=== PATIENT | female | born 1965 | race Caucasian/White ===

== ENCOUNTER 2019-05-18 01:18 | Inpatient (IN) | payer OTHER ==
[~2019-05-18] VITALS: Ht 157.5 cm; Wt 71.7 kg
[2019-05-18] MEDS ORDERED: LEVETIRACETAM 1000 MG (PMX) 100 ML IVPB STA (01:23)
[2019-05-18] MEDS ORDERED: SOD CHLORIDE 0.9% 1,000 ML IV STA (01:23)
--- NOTE | 2019-05-18 03:44 | ERD ---
ER Documentation Chief Complaint Chief Complaint R81. FROM SNF. FOCAL SEIZURE FACE AND LEFT ARM. HPI This is a 53-year-old female with a past medical history of hypertension, traumatic subarachnoid hemorrhage, anoxic brain injury in a persistent vegetative state, chronic respiratory failure status post tracheostomy, dysphagia status post gastrostomy who is now presenting for a focal seizure. The patient reportedly had 20 to 25 minutes of left arm and left-sided facial twitching. The patient was reportedly ordered 1 mg of Ativan through the G-tube at her [facility] facility for this event, but it proved ineffective. The nursing facility physician subsequently requested that the patient be transferred for further assessment in the emergency department. The patient was given Versed in route to the emergency department with resolution of her shaking. The patient now appears to be back at her baseline. Based on her medical records, the patient does not have a history of seizures. History and physical is limited secondary to clinical condition. ROS Unable to obtain secondary to clinical condition Medications Home Meds Reported Medications Acetaminophen* (Acetaminophen*) 325 Mg Tablet, 650 MG PO Q4H PRN for PAIN AND OR ELEVATED TEMP, #30 TAB 05/18/19 Cranberry Ext/C/L. Sporogenes (Cranberry Tablet) 1 Each Tablet, 1 EACH PO DAILY, TAB 05/18/19 Docusate Sodium* (Docusate Sodium*) 100 Mg Capsule, 100 MG PO QHS, #30 CAP 05/18/19 Chlorhexidine Gluconate* (Chlorhexidine Gluconate*) 118 Ml Liquid, 15 ML TOP Q12H, ML 05/18/19 Amlodipine Besylate* (Amlodipine Besylate*) 10 Mg Tablet, 10 MG PO DAILY, #30 TAB 05/18/19 Albuterol Sulfate* (Proair HFA*) 8.5 Gm Hfa.aer.ad, 2 PUFF INH Q6 for WHEEZING, #1 INHALER 05/18/19 Allergies Allergies: Coded Allergies: No Known Allergy (Unverified , 05/18/19) PMhx/Soc History of Surgery: Yes (Tracheostomy, gastrostomy) Anesthesia Reaction: No Hx Neurological Disorder: Yes (Traumatic subarachnoid hemorrhage, anoxic brain injury, persistent vegetative state) Hx Respiratory Disorders: Yes (Chronic respiratory failure status post tracheostomy) Hx Cardiac Disorders: Yes (Hypertension) Hx Psychiatric Problems: No Hx Miscellaneous Medical Probl: Yes (Dysphasia status post gastrostomy, ambulatory difficulty) Hx Alcohol Use: No Hx Substance Use: No Hx Tobacco Use: No FmHx Unable to obtain secondary to clinical condition Physical Exam Vitals Vital Signs Date Temp Pulse Resp B/P (MAP) Pulse Ox O2 O2 Flow FiO2 Time Delivery Rate 05/18/19 100 10.0 40 05:15 05/18/19 85 18 100 Aerosol 10.0 40 05:15 T Tube 05/18/19 90 28 134/89 96 T Tube 15.0 03:00 (104) 05/18/19 100 10.0 40 02:50 05/18/19 108 20 100 T Tube 15.0 01:31 05/18/19 100 15.0 01:31 05/18/19 100.1 121 20 01:19 Physical Exam Const: No acute distress Head: Atraumatic Eyes: Normal Conjunctiva ENT: Normal External Ears, Nose and Mouth. Neck: Full range of motion. No meningismus. Resp: Clear to auscultation bilaterally Cardio: Regular rhythm, tachycardia, no murmurs Abd: Soft, non tender, non distended. Normal bowel sounds Skin: No petechiae or rashes Back: No midline or flank tenderness Ext: No cyanosis, or edema. Atrophic with contracturing Neur: Unresponsive, no spontaneous movement of extremities Result Diagram: 05/18/19 0140 05/18/19 0140 Results 24 hrs Laboratory Tests Test 05/18/19 01:40 05/18/19 01:47 White Blood Count 9.6 10^3/ul Red Blood Count 4.19 10^6/ul Hemoglobin 12.3 g/dl Hematocrit 37.6 % Mean Corpuscular Volume 89.7 fl Mean Corpuscular Hemoglobin 29.4 pg Mean Corpuscular Hemoglobin Concent 32.7 g/dl Red Cell Distribution Width 12.8 % Platelet Count 244 10^3/UL Mean Platelet Volume 11.5 fl Immature Granulocytes % 1.000 % Neutrophils % 70.0 % Lymphocytes % 18.8 % Monocytes % 5.7 % Eosinophils % 4.1 % Basophils % 0.4 % Nucleated Red Blood Cells % 0.0 /100WBC Immature Granulocytes # 0.100 10^3/ul Neutrophils # 6.7 10^3/ul Lymphocytes # 1.8 10^3/ul Monocytes # 0.6 10^3/ul Eosinophils # 0.4 10^3/ul Basophils # 0.0 10^3/ul Nucleated Red Blood Cells # 0.0 10^3/ul Prothrombin Time 12.9 Sec Prothrombin Time Ratio 1.0 INR International Normalized Ratio 0.96 Activated Partial Thromboplast Time 29.2 Sec Sodium Level 149 mmol/L Potassium Level 3.2 mmol/L Chloride Level 105 mmol/L Carbon Dioxide Level 31 mmol/L Anion Gap 13 Blood Urea Nitrogen 16 mg/dl Creatinine 0.49 mg/dl Est Glomerular Filtrat Rate mL/min > 60 mL/min Glucose Level 165 mg/dl Calcium Level 8.6 mg/dl Total Bilirubin 0.2 mg/dl Direct Bilirubin 0.00 mg/dl Indirect Bilirubin 0.2 mg/dl Aspartate Amino Transf (AST/SGOT) 23 IU/L Alanine Aminotransferase (ALT/SGPT) 24 IU/L Alkaline Phosphatase 99 IU/L Total Protein 8.2 g/dl Albumin 4.3 g/dl Globulin 3.90 g/dl Albumin/Globulin Ratio 1.10 Bedside Glucose 167 mg/dL Current Medications Medications Dose Sig/Lily Start Time Status Last (Trade) Ordered Route PRN Stop Time Admin Dose Reason Admin Sodium 1,000 ml @ Q1H STAT 05/18/19 DC 05/18/19 Chloride 1,000 mls/hr IV 01:23 05/18/19 01:39 02:22 100 ml @ ONCE STAT 05/18/19 DC 05/18/19 Levetiracetam 400 mls/hr IVPB 01:23 05/18/19 02:11 01:37 Ondansetron 4 mg ER BRIDGE 05/18/19 HCl (Zofran PRN IV 04:30 05/19/19 Inj) NAUSEA/VOMITI 04:29 NG 650 mg ER BRIDGE 05/18/19 Acetaminophen PRN PO 04:30 05/19/19 (Tylenol .MILD PAIN 04:29 Tab) 1-3 OR TEMP Procedures/MDM MDM The patient's presentation warrants further investigation. Previous medical records, if available, were reviewed. LABS The patient's laboratory testing was obtained and reviewed. No emergent treatment was required unless described below. CBC: No E/o systemic infection or severe anemia or thrombocytopenia Chemistry: Mild hypokalemia, not emergent, unlikely to be the etiology of her symptoms today. No E/o severe acidosis or alkalosis or renal failure or liver disease or diabetic ketoacidosis PT/INR: No E/o significant coagulopathy Urine: Pending EKG EKG read by me: Rate/Rhythm: Sinus tachycardia at 112 bpm Intervals: Normal [place]: Normal Impression: Nonspecific repolarization changes without evidence of acute ischemia. Sinus tachycardia. IMAGING Imaging and Radiology interpretation reviewed. CXR FINDINGS: Unremarkable tracheostomy. Hypoventilatory chest. Heart borderline enlarged. No evidence of pulmonary vascular congestion acute lung consolidation pleural effusions and pneumothorax. Left-sided ventriculostomy. IMPRESSION: Hypoventilatory chest without congestive heart failure or pneumonia. Electronically viewed and signed by Physician Yaneli on 05/18/2019 03:48 CT head FINDINGS: There is considerable motion artifact despite repeating the scan limiting the evaluation. There has been a prior right frontal craniotomy. There appears to be an aneurysm clip within the anterior parasagittal region. There is a left transfrontal ventriculoperitoneal shunt with the catheter crossing the septum pellucidum with the tip in the right frontal horn of the lateral ventricle. There is extensive bifrontal encephalomalacia. There is mild prominence of the sulci and cisternal spaces consistent with diffuse volume loss. There is prominence of the lateral ventricles. There is no significant midline shift. There is no evidence for acute intra or extra-axial blood. There is polypoidal mucosal thickening within the partially visualized inferior right maxillary sinus. The mastoid air cells are without significant soft tissue. IMPRESSION: 1. Extensive motion artifact markedly limiting the evaluation. 2. Status post right frontal craniotomy with aneurysm clip within the anterior parasagittal region. 3. Extensive bifrontal encephalomalacia. 4. Left transfrontal ventriculoperitoneal shunt with the tip in the frontal horn of the right lateral ventricle. 5. Diffuse prominence of the ventricular system. Prior studies are not available to assess interval change. 6. Mild diffuse volume loss. 7. Polypoidal mucosal thickening partially visualized inferior right maxillary sinus. Electronically viewed and signed by Jevon Mason MD, MD on 05/18/2019 04:55 TREATMENT/DISPOSITION The patient presents after a focal seizure, which is reportedly new onset. Upon reviewing the patient's medical record, the patient does not appear to have a diagnosis of a seizure disorder and does not appear to be on any seizure medications. She does have a history of traumatic brain injury with previous intracranial hemorrhages, hydrocephalus requiring TABLET MACHINE OPERATOR shunt, so I would not be surprised if the patient does not fact have a seizure disorder. That said, I do not have any previous visits here to suggest this, and I do feel the patient would benefit from further assessment in the hospital. The patient does appear to have some prominence of her ventricular system. The patient may require evaluation from neurosurgery regarding the TABLET MACHINE OPERATOR shunt. This decision will be deferred to the admitting physician. The patient did have an elevated temperature in the emergency department, but she is technically not febrile. The patient does not meet criteria for a systemic inflammatory response syndrome. I do not believe the patient is septic and I do not feel the patient requires a full septic work-up. That said, an infectious etiology could be the inciting event that led to a decrease seizure threshold. I do not see evidence of obvious pneumonia. That said, a viral syndrome is certainly a possibility. I am also awaiting a urinalysis. I do not immediately treat the patient with antibiotics, but she may require antibiotics if her urinalysis comes back positive. The patient has no signs of emergent or symptomatic anemia. The patient does not have any emergent electrolyte or metabolic emergencies. I have decrease suspicion for a thyroid disorder. The patient is not toxic appearing. I have decreased suspicion for an infectious etiology of symptoms. The patient was treated with IV fluids and a dose of Keppra in the emergency department. ADMISSION At this time, I feel that the patient requires admission for further evaluation and management. The patient will be admitted to Dr. Metcalf in accordance with the patient's insurance. The patient was accepted by Dr. Metcalf at 0500AM to telemetry. Disclaimer: Inadvertent spelling and grammatical errors are likely due to EHR/dictation software use and do not reflect on the overall quality of patient care. Note that the electronic time recorded on this note does not necessarily reflect the actual time of the patient encounter. Departure Diagnosis: Primary Impression: Seizure Additional Impression: Hypokalemia Condition: Serious JEFF GARCIA MD May 18, 2019 03:43
[2019-05-18] MEDS ORDERED: ACETAMINOPHEN 325 MG TAB PO PRN (04:30)
[2019-05-18] MEDS ORDERED: ONDANSETRON 4 MG INJ IV PRN (04:30)
[2019-05-18] MEDS ORDERED: CHLO118L3 TOP (04:45)
[2019-05-18] MEDS ORDERED: DOCU-159 PO (04:45)
[2019-05-18] MEDS ORDERED: AMLO-147 PO (04:45)
[2019-05-18] MEDS ORDERED: ALBU8.5H8 INH (04:45)
[2019-05-18] MEDS ORDERED: CRAN1TAB6 PO (04:45)
[2019-05-18] MEDS ORDERED: ACET325T45 PO (04:45)
--- NOTE | 2019-05-18 12:56 | HP ---
Date/Time of Note Date/Time of Note DATE: 05/18/19 TIME: 12:31 Assessment/Plan VTE Prophylaxis SCD contraindicated: other Pharmacological prophylaxis: other Pharm contraindication: other Lines/Catheters IV Catheter Type (from Nrsg): Peripheral IV Central line still needed: Yes Assessment/Plan Assessment/Plan - Seizure activity - admit to unit - Seizure precautions - is following in neurology consultation.- notified - Continue Keppra and Ativan as needed. - Hypokalemia- replace; FU am BMP -Chronic respiratory failure with tracheostomy currently on cool aerosol mist. - Dr. Blake is notified following in pulmonology consultation. - Hypertension -Dysphagia with G-tube -Hypertension, continue Norvasc. -History of subarachnoid hemorrhage. - Traumatic subarachnoid hemorrhage - anoxic brain injury - persistent vegetative state - Chronic respiratory failure status post tracheostomy - Pulmonary consult - Dysphasia status post gastrostomy - aspiration precautions - Bed Ridden Further recommendations based on clinical course. Plan of care discussed with Dr. Metcalf. Result Diagram: 05/18/19 0140 05/18/19 0140 Results 24hrs Laboratory Tests Test 05/18/19 01:40 05/18/19 01:47 White Blood Count 9.6 Red Blood Count 4.19 L Hemoglobin 12.3 Hematocrit 37.6 Mean Corpuscular Volume 89.7 Mean Corpuscular Hemoglobin 29.4 Mean Corpuscular Hemoglobin Concent 32.7 Red Cell Distribution Width 12.8 Platelet Count 244 Mean Platelet Volume 11.5 H Immature Granulocytes % 1.000 H Neutrophils % 70.0 Lymphocytes % 18.8 Monocytes % 5.7 Eosinophils % 4.1 Basophils % 0.4 Nucleated Red Blood Cells % 0.0 Immature Granulocytes # 0.100 H Neutrophils # 6.7 Lymphocytes # 1.8 Monocytes # 0.6 Eosinophils # 0.4 Basophils # 0.0 Nucleated Red Blood Cells # 0.0 Prothrombin Time 12.9 Prothrombin Time Ratio 1.0 INR International Normalized Ratio 0.96 Activated Partial Thromboplast Time 29.2 Sodium Level 149 H Potassium Level 3.2 L Chloride Level 105 Carbon Dioxide Level 31 Anion Gap 13 Blood Urea Nitrogen 16 Creatinine 0.49 Est Glomerular Filtrat Rate mL/min > 60 Glucose Level 165 Calcium Level 8.6 Total Bilirubin 0.2 Direct Bilirubin 0.00 Indirect Bilirubin 0.2 Aspartate Amino Transf (AST/SGOT) 23 Alanine Aminotransferase (ALT/SGPT) 24 Alkaline Phosphatase 99 Total Protein 8.2 H Albumin 4.3 Globulin 3.90 H Albumin/Globulin Ratio 1.10 Bedside Glucose 167 HPI/ROS Admit Date/Time Admit Date/Time Hx of Present Illness HPI This is a 53-year-old female, a SNF resident with a past medical history of hypertension, traumatic subarachnoid hemorrhage, anoxic brain injury in a persistent vegetative state, chronic respiratory failure status post tracheostomy, dysphagia status post gastrostomy . Patient is admitted 2/ to a focal seizure. Based on her medical records, the patient does not have a history of seizures.History and physical is limited secondary to clinical condition. ROS Unable to obtain secondary to clinical condition Medications Home Meds Reported Medications Acetaminophen* (Acetaminophen*) 325 Mg Tablet, 650 MG PO Q4H PRN for PAIN AND OR ELEVATED TEMP, #30 TAB 05/18/19 Cranberry Ext/C/L. Sporogenes (Cranberry Tablet) 1 Each Tablet, 1 EACH PO DAILY, TAB 05/18/19 Docusate Sodium* (Docusate Sodium*) 100 Mg Capsule, 100 MG PO QHS, #30 CAP 05/18/19 Chlorhexidine Gluconate* (Chlorhexidine Gluconate*) 118 Ml Liquid, 15 ML TOP Q12H, ML 05/18/19 Amlodipine Besylate* (Amlodipine Besylate*) 10 Mg Tablet, 10 MG PO DAILY, #30 TAB 05/18/19 Albuterol Sulfate* (Proair HFA*) 8.5 Gm Hfa.aer.ad, 2 PUFF INH Q6 for WHEEZING, #1 INHALER 05/18/19 Allergies Allergies: Coded Allergies: No Known Allergy (Unverified , 05/18/19) PMhx/Soc History of Surgery: Yes (Tracheostomy, gastrostomy) Anesthesia Reaction: No Hx Neurological Disorder: Yes (Traumatic subarachnoid hemorrhage, anoxic brain injury, persistent vegetative state) Hx Respiratory Disorders: Yes (Chronic respiratory failure status post tracheos shahid) Hx Cardiac Disorders: Yes (Hypertension) Hx Psychiatric Problems: No Hx Miscellaneous Medical Probl: Yes (Dysphasia status post gastrostomy, ambulatory difficulty) Hx Alcohol Use: No Hx Substance Use: No Hx Tobacco Use: No FmHx Unable to obtain secondary to clinical condition ROS Subjective hx not possible: pt non-verbal PMH/Family/Social Past Medical History Medications Current Medications Ondansetron HCl (Zofran Inj) 4 mg ER BRIDGE PRN IV NAUSEA/VOMITING; Start 05/18/19 at 04:30; Stop 05/19/19 at 04:29 Acetaminophen (Tylenol Tab) 650 mg ER BRIDGE PRN PO .MILD PAIN 1-3 OR TEMP; Start 05/18/19 at 04:30; Stop 05/19/19 at 04:29 Coded Allergies: No Known Allergy (Unverified , 05/18/19) Exam/Review of Systems Vital Signs Vitals Vital Signs Date Temp Pulse Resp B/P (MAP) Pulse Ox O2 O2 Flow FiO2 Time Delivery Rate 05/18/19 76 22 117/86 100 Trach 11:08 (96) Collar 05/18/19 12.0 06:56 05/18/19 40 05:15 05/18/19 100.1 01:19 Exam Constitutional: alert, non-verbal Psych: nl mood/affect Eyes: nl lids, nl sclera ENMT: nl external ears & nose Neck: other (trach intact) Respiratory: diminished breath sounds Cardiovascular: nl pulses, other (s1s2) Gastrointestinal: soft, other (GT intact) Musculoskeletal: muscle weakness, range of motion Neurological: confused Lymph: nontender KHALIDA BURCIAGA May 18, 2019 12:41
[2019-05-18] MEDS ORDERED: POTASSIUM CHLORIDE 100 ML IVPB ONE (13:00)
--- NOTE | 2019-05-18 19:37 | CONSI ---
Assessment/Plan Assessment/Plan Assessment/Plan (Recall) 53 F c/ reported Hx of aneurysm rupture s/p clipping..., who presents following a suspected seizure..her reported first of life. CXR suggests congestive failure vs. pna; acute systemic illness would certainly lower her seizure threshold.. Head CT is notable for diffuse injury...without obvious acute pathology. P: Baseline EEG when able Add Keppra for seizure ppx, given extensive encephalomalacia noted on head CT Ativan iv prn prolonged seizure (> 5min) Add UA, Mg, Phos Other management per primary Will follow clinically Consultation Date/Type/Reason Admit Date/Time Type of Consult Neurology Reason for Consultation seizure Requesting Provider: KHALIDA BURCIAGA Date/Time of Note DATE: 05/18/19 TIME: 19:37 Hx of Present Illness 53 F who presents for evaluation of focal seizures. She is unable to contribute a Hx 2/2 chronic ventilatory dependence. She is without neurologic complaints today. She is NOT is PVS...but alert, and able to follow simple commands. It is elsewhere noted: This is a 53-year-old female with a past medical history of hypertension, traumatic subarachnoid hemorrhage, anoxic brain injury in a persistent vegetative state, chronic respiratory failure status post tracheostomy, dysphagia status post gastrostomy who is now presenting for a focal seizure. The patient reportedly had 20 to 25 minutes of left arm and left-sided facial twitching. The patient was reportedly ordered 1 mg of Ativan through the G-tube at her [facility] facility for this event, but it proved ineffective. The nursing facility physician subsequently requested that the patient be transferred for further assessment in the emergency department. The patient was given Versed in route to the emergency department with resolution of her sh aking. The patient now appears to be back at her baseline. Based on her medical records, the patient does not have a history of seizures. History and physical is limited secondary to clinical condition. limited by trach Objective Exam Vitals Vital Signs Date Temp Pulse Resp B/P (MAP) Pulse Ox O2 O2 Flow FiO2 Time Delivery Rate 05/18/19 100 10.0 40 17:38 05/18/19 76 21 113/89 Trach 15:00 (97) Collar 05/18/19 100.1 01:19 Exam PE: Gen Appearance: No Apparent Distress HEENT: Trach Cardiovascular: Regular rate Abdomen: Soft Extremities: Dry NE: The patient was alert, able to fix and follow...and nod appropriately. She could follow simple commands. Cranial nerve examination was limited by mental status. Pupils were equal and reactive to light. There was no afferent pupillary defect. Funduscopic examination was limited. Face was grossly symmetric, w/ present corneal and cough reflexes. Tone was increased, most in the right hand. Muscle bulk was reduced. I did not see fasciculations. The patient moved her limbs spontaneously, with appreciable right sided weakness. Coordination and gait testing was limited by mental status. Arm and leg reflexes were brisk on the right. Medley's sign was absent. Plantar responses were flexor. Results Result Diagram: 05/18/19 0140 05/18/19 0140 Results 24hrs Laboratory Tests Test 05/18/19 01:40 05/18/19 01:47 White Blood Count 9.6 Red Blood Count 4.19 L Hemoglobin 12.3 Hematocrit 37.6 Mean Corpuscular Volume 89.7 Mean Corpuscular Hemoglobin 29.4 Mean Corpuscular Hemoglobin Concent 32.7 Red Cell Distribution Width 12.8 Platelet Count 244 Mean Platelet Volume 11.5 H Immature Granulocytes % 1.000 H Neutrophils % 70.0 Lymphocytes % 18.8 Monocytes % 5.7 Eosinophils % 4.1 Basophils % 0.4 Nucleated Red Blood Cells % 0.0 Immature Granulocytes # 0.100 H Neutrophils # 6.7 Lymphocytes # 1.8 Monocytes # 0.6 Eosinophils # 0.4 Basophils # 0.0 Nucleated Red Blood Cells # 0.0 Prothrombin Time 12.9 Prothrombin Time Ratio 1.0 INR International Normalized Ratio 0.96 Activated Partial Thromboplast Time 29.2 Sodium Level 149 H Potassium Level 3.2 L Chloride Level 105 Carbon Dioxide Level 31 Anion Gap 13 Blood Urea Nitrogen 16 Creatinine 0.49 Est Glomerular Filtrat Rate mL/min > 60 Glucose Level 165 Calcium Level 8.6 Total Bilirubin 0.2 Direct Bilirubin 0.00 Indirect Bilirubin 0.2 Aspartate Amino Transf (AST/SGOT) 23 Alanine Aminotransferase (ALT/SGPT) 24 Alkaline Phosphatase 99 Total Protein 8.2 H Albumin 4.3 Globulin 3.90 H Albumin/Globulin Ratio 1.10 Bedside Glucose 167 Past Medical History reviewed Home Meds Reported Medications Acetaminophen* (Acetaminophen*) 325 Mg Tablet, 650 MG PO Q4H PRN for PAIN AND OR ELEVATED TEMP, #30 TAB 05/18/19 Cranberry Ext/C/L. Sporogenes (Cranberry Tablet) 1 Each Tablet, 1 EACH PO DAILY, TAB 05/18/19 Docusate Sodium* (Docusate Sodium*) 100 Mg Capsule, 100 MG PO QHS, #30 CAP 05/18/19 Chlorhexidine Gluconate* (Chlorhexidine Gluconate*) 118 Ml Liquid, 15 ML TOP Q12H, ML 05/18/19 Amlodipine Besylate* (Amlodipine Besylate*) 10 Mg Tablet, 10 MG PO DAILY, #30 TAB 05/18/19 Albuterol Sulfate* (Proair HFA*) 8.5 Gm Hfa.aer.ad, 2 PUFF INH Q6 for WHEEZING, #1 INHALER 05/18/19 Medications Current Medications Ondansetron HCl (Zofran Inj) 4 mg ER BRIDGE PRN IV NAUSEA/VOMITING; Start 05/18/19 at 04:30; Stop 05/19/19 at 04:29 Acetaminophen (Tylenol Tab) 650 mg ER BRIDGE PRN PO .MILD PAIN 1-3 OR TEMP; Start 05/18/19 at 04:30; Stop 05/19/19 at 04:29 Allergies: Coded Allergies: No Known Allergy (Unverified , 05/18/19) Past Surgical History reviewed Social History Alcohol Use: none Drug Use: none LAINA VIDAL May 18, 2019 19:37
[2019-05-18 20:00] VITALS: BP 109/65; PULSE 83; RESP 19
[2019-05-18 22:25] VITALS: Ht 157.5 cm; Wt 71.7 kg
[2019-05-19] VITALS: BP 121/78; PULSE 75; RESP 20
[2019-05-19 04:00] VITALS: BP 123/75; PULSE 67; RESP 18
[2019-05-19 07:30] VITALS: BP 121/72; PULSE 72; RESP 20
--- NOTE | 2019-05-19 08:06 | CONS ---
Assessment/Plan Assessment/Plan Assessment/Plan (Recall) 53 F c/ reported Hx of aneurysm rupture s/p clipping..., who presents following a suspected seizure..her reported first of life. CXR suggests congestive failure vs. pna; acute systemic illness would certainly lower her seizure threshold.. Head CT is notable for diffuse injury...without obvious acute pathology. P: Baseline EEG when able Add Keppra for seizure ppx, given extensive encephalomalacia noted on head CT Ativan iv prn prolonged seizure (> 5min) Add UA, Mg, Phos Other management per primary Will follow clinically Consultation Date/Type/Reason Admit Date/Time May 18, 2019 at 04:25 Type of Consult Neurology Reason for Consultation seizure Requesting Provider: KHALIDA BURCIAGA Date/Time of Note DATE: 05/19/19 TIME: 08:06 24 HR Interval Summary Free Text/Dictation Continues acute care Exam/Review of Systems Exam Vitals Vital Signs Date Temp Pulse Resp B/P (MAP) Pulse Ox O2 O2 Flow FiO2 Time Delivery Rate 05/19/19 98.5 72 20 121/72 99 Trach 07:30 (88) Collar 05/19/19 10.0 40 03:47 Intake and Output 05/18/19 05/18/19 05/19/19 1414:59 22:59 06:59 IntakeIntake Total 880 ml BalanceBalance 880 ml Results Result Diagram: 05/18/19 0140 05/18/19 0140 Medications Medication Current Medications Lorazepam (Ativan) 1 mg Q1H PRN IV SEIZURE; Start 05/18/19 at 22:00 LAINA VIDAL May 19, 2019 08:06
[2019-05-19] MEDS: LORAZEPAM 2 MG INJ IV PRN ×2 (09:53→13:35)
--- NOTE | 2019-05-19 10:15 | PN ---
Date/Time of Note Date/Time of Note DATE: 05/19/19 TIME: 10:14 Assessment/Plan VTE Prophylaxis Risk score (from Ns)>0 risk: 6 SCD applied (from [facility] [place]): Yes SCD contraindicated: other Pharmacological prophylaxis: other Pharm contraindication: other Lines/Catheters IV C[facility]ter Type (from [facility]): Peripheral IV Assessment/Plan Assessment/Plan Hypokalemia - replace K; am BMP Seizure - Seizure precautions - Pulmonary consult Hypokalemia -Tracheostomy, gastrostomy - Traumatic subarachnoid hemorrhage - anoxic brain injury persistent vegetative state - Chronic respiratory failure status post tracheostomy - Hypertension Dysphasia status post gastrostomy Bed Ridden Result Diagram: 05/19/19 0659 05/19/19 0659 Results 24hrs Laboratory Tests Test 05/19/19 06:58 05/19/19 06:59 Phosphorus Level 3.7 Magnesium Level 2.1 White Blood Count 6.4 # Red Blood Count 3.78 L Hemoglobin 11.2 L Hematocrit 33.3 L Mean Corpuscular Volume 88.1 Mean Corpuscular Hemoglobin 29.6 Mean Corpuscular Hemoglobin Concent 33.6 Red Cell Distribution Width 12.9 Platelet Count 222 Mean Platelet Volume 12.2 H Immature Granulocytes % 0.200 Neutrophils % 56.5 Lymphocytes % 28.4 Monocytes % 9.6 Eosinophils % 4.8 Basophils % 0.5 Nucleated Red Blood Cells % 0.0 Immature Granulocytes # 0.010 Neutrophils # 3.6 Lymphocytes # 1.8 Monocytes # 0.6 Eosinophils # 0.3 Basophils # 0.0 Nucleated Red Blood Cells # 0.0 Sodium Level 145 H Potassium Level 3.2 L Chloride Level 106 Carbon Dioxide Level 32 H Anion Gap 7 Blood Urea Nitrogen 16 Creatinine 0.42 L Est Glomerular Filtrat Rate mL/min > 60 Glucose Level 102 # Calcium Level 8.9 Subjective 24 Hr Interval Summary Subjective hx not possible: pt non-verbal Constitutional: requiring O2 Exam/Review of Systems Exam Vitals Vital Signs Date Temp Pulse Resp B/P (MAP) Pulse Ox O2 O2 Flow FiO2 Time Delivery Rate 05/19/19 98.5 72 20 121/72 99 Trach 07:30 (88) Collar 05/19/19 10.0 40 03:47 Intake and Output 05/18/19 05/18/19 05/19/19 1414:59 22:59 06:59 IntakeIntake Total 880 ml BalanceBalance 880 ml Constitutional: alert, well developed, non-verbal Psych: nl mood/affect Head: normocephalic Eyes: nl lids ENMT: nl external ears & nose Neck: other (Trach intact) Respiratory: clear to auscultation Cardiovascular: nl pulses, other (s1s2) Gastrointestinal: soft, other (gt intact) Musculoskeletal: muscle weakness Extremities: normal pulses Neurological: other (awake) Results Results 24hrs Laboratory Tests Test 05/19/19 06:58 05/19/19 06:59 Phosphorus Level 3.7 Magnesium Level 2.1 White Blood Count 6.4 # Red Blood Count 3.78 L Hemoglobin 11.2 L Hematocrit 33.3 L Mean Corpuscular Volume 88.1 Mean Corpuscular Hemoglobin 29.6 Mean Corpuscular Hemoglobin Concent 33.6 Red Cell Distribution Width 12.9 Platelet Count 222 Mean Platelet Volume 12.2 H Immature Granulocytes % 0.200 Neutrophils % 56.5 Lymphocytes % 28.4 Monocytes % 9.6 Eosinophils % 4.8 Basophils % 0.5 Nucleated Red Blood Cells % 0.0 Immature Granulocytes # 0.010 Neutrophils # 3.6 Lymphocytes # 1.8 Monocytes # 0.6 Eosinophils # 0.3 Basophils # 0.0 Nucleated Red Blood Cells # 0.0 Sodium Level 145 H Potassium Level 3.2 L Chloride Level 106 Carbon Dioxide Level 32 H Anion Gap 7 Blood Urea Nitrogen 16 Creatinine 0.42 L Est Glomerular Filtrat Rate mL/min > 60 Glucose Level 102 # Calcium Level 8.9 Medications Medication Current Medications Lorazepam (Ativan) 1 mg Q1H PRN IV SEIZURE Last administered on 05/19/19at 09:53; Admin Dose 1 MG; Start 05/18/19 at 22:00 KHALIDA BURCIAGA May 19, 2019 10:15
[2019-05-19 10:56] VITALS: BP 128/79; PULSE 68; RESP 20
--- NOTE | 2019-05-19 12:34 | CONS ---
DATE OF ADMISSION: 05/18/2019 DATE OF CONSULTATION: 05/19/2019 REASON FOR CONSULTATION: Chronic respiratory failure. Thank you, Dr. Metcalf, for this consultation. HISTORY OF PRESENT ILLNESS: This is an unfortunate 53-year-old lady with a history of traumatic suba rachnoid hemorrhage, anoxic brain injury, persistent vegetative state, tracheostomy, G-tube, had a fo robbin seizure at detention facility, given Ativan and transferred here for further evaluation. C urrently, she appears stable, no further seizure activity, having received Versed in the emergency ro om. PAST MEDICAL HISTORY: As above. MEDICATIONS: Per chart. ALLERGIES: NONE. SOCIAL HISTORY: Nonsmoker, no alcohol, no history of drug use. FAMILY HISTORY: Noncontributory. SYSTEMS REVIEW: A 12-point review of systems was negative other than that mentioned above. PHYSICAL EXAMINATION: GENERAL: Well-nourished, well-developed lady, appears comfortable at rest, no acute distress. VITAL SIGNS: Currently afebrile, pulse is 68, blood pressure 128/79, O2 saturation 96% on 40% cool a erosol. NECK: Trach site clean and intact. CARDIAC: S1, S2, no added sounds or murmurs. CHEST: Diminished air entry bilaterally, but no rales or wheezes. ABDOMEN: Soft, nontender. No guarding or rebound. EXTREMITIES: No cyanosis, clubbing, edema. NEUROLOGIC: Unable to assess. LABORATORY DATA: White count 6.4, hemoglobin 11.2, platelets 222. Chemistry: Potassium 3.2, BUN 16 , creatinine 0.42, INR 0.96. DIAGNOSTIC DATA: Chest x-ray demonstrates no CHF or pneumonia. CT brain demonstrates extensive marian on artifact, status post frontal craniotomy with aneurysm clip extensive bifrontal encephalomalacia, DYE RANGE FEEDER shunt in place. IMPRESSION AND PLAN: 1. Status post subarachnoid hemorrhage. 2. Chronic respiratory failure. 3. Transient seizure which now appears stable. 4. Dysphagia with G-tube. PLAN: 1. Continue pulmonary toilet. 2. Tube feeding. 3. Replace electrolytes. 4. Consider addition of Keppra. 5. Neuro recommendations with EEG. 6. DVT and GI prophylaxis. Dictated By: JOHN MODI/MARYELLEN Conf#: [id number] [facility]#: [id number] CC: BATSHEVA METCALF MD;*End*
[2019-05-19] MEDS: AMLODIPINE 10 MG TAB PO SCH (13:35)
[2019-05-19] MEDS: ALBUTEROL HFA 8 GM INHALER INH SCH ×2 (14:52→20:05)
[2019-05-19 15:22] VITALS: BP 128/83; PULSE 78; RESP 20
[2019-05-19 19:29] VITALS: BP 145/85; PULSE 72; RESP 18
[2019-05-19] MEDS ORDERED: POTASSIUM CHLORIDE 20 MEQ POWDER FOR ORAL SOLN GTB ONE (20:00)
[2019-05-19] MEDS: DOCUSATE SODIUM 100 MG CAP PO SCH (20:42)
[2019-05-20] VITALS: BP 126/86; PULSE 79; RESP 18
[2019-05-20] MEDS: ALBUTEROL 0.083% (NEB) 2.5 MG/3 ML AMP HHN SCH ×4 (01:31→20:34)
[2019-05-20 04:00] VITALS: BP 127/85; PULSE 79; RESP 18
[2019-05-20 07:41] VITALS: BP 131/81; PULSE 76
[2019-05-20] MEDS: AMLODIPINE 10 MG TAB PO SCH (09:20)
--- NOTE | 2019-05-20 10:35 | CONS ---
Assessment/Plan Assessment/Plan Assessment/Plan (Daily) Assessment and recommendations; 1. Patient with history of subarachnoid hemorrhage admitted for seizures with marked interval improvement. 2. Acute encephalopathy likely metabolic in etiology with interval improvement as well. 3. Chronic respiratory failure, maintained on T-piece. 4. Chronic dysphagia, status post G-tube placement in the past. Continue current supportive care. Patient can be discharged from pulmonary perspective. Consultation Date/Type/Reason Admit Date/Time May 18, 2019 at 04:25 Initial Consult Date Type of Consult Pulmonary Patient condition is markedly improved. Patient remains completely awake and alert. Has remained hemodynamically stable. No overt seizure activity reported. General exam; young female, awake alert, currently no distress. On T-piece via tracheostomy. Reason for Consultation H EENT exam; supple neck, no JVD. No lymphadenopathy. Midline trachea. No thyromegaly. Pharynx is clear. Patient has fair dentition. Tracheostomy in place. Attached to T-piece. Chest exam; clear to auscultation. S1-S2 audible, no murmurs. Regular rhythm. Abdomen exam; soft, no organomegaly. G-tube in place. Bowel sounds audible. Abdomen is nondistended. Extremity exam; no peripheral edema clubbing. 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 Requesting Provider: KHALIDA BURCIAGA Date/Time of Note DATE: 05/20/19 TIME: 10:33 Exam/Review of Systems Exam Vitals Vital Signs Date Temp Pulse Resp B/P (MAP) Pulse Ox O2 O2 Flow FiO2 Time Delivery Rate 05/20/19 T Tube 08:30 05/20/19 99 10.0 40 08:20 05/20/19 76 18 08:20 05/20/19 99.0 131/81 07:41 (98) Intake and Output 05/19/19 05/19/19 05/20/19 1515:00 23:00 07:00 IntakeIntake Total 1120 ml 1310 ml BalanceBalance 1120 ml 1310 ml Results Result Diagram: 05/20/19 0643 05/20/19 0643 Results 24hrs Laboratory Tests Test 05/20/19 06:43 White Blood Count 5.8 Red Blood Count 4.07 L Hemoglobin 11.9 L Hematocrit 35.3 L Mean Corpuscular Volume 86.7 Mean Corpuscular Hemoglobin 29.2 Mean Corpuscular Hemoglobin Concent 33.7 Red Cell Distribution Width 12.8 Platelet Count 242 Mean Platelet Volume 11.9 H Immature Granulocytes % 0.200 Neutrophils % 59.0 Lymphocytes % 24.9 Monocytes % 10.9 Eosinophils % 4.7 Basophils % 0.3 Nucleated Red Blood Cells % 0.0 Immature Granulocytes # 0.010 Neutrophils # 3.4 Lymphocytes # 1.4 Monocytes # 0.6 Eosinophils # 0.3 Basophils # 0.0 Nucleated Red Blood Cells # 0.0 Sodium Level 145 H Potassium Level 3.4 L Chloride Level 105 Carbon Dioxide Level 31 Anion Gap 9 Blood Urea Nitrogen 13 Creatinine 0.40 L Est Glomerular Filtrat Rate mL/min > 60 Glucose Level 116 Calcium Level 9.5 Medications Medication Current Medications Lorazepam (Ativan) 1 mg Q1H PRN IV SEIZURE Last administered on 05/19/19 13:35; Admin Dose 1 MG; Start 05/18/19 at 22:00 Acetaminophen (Tylenol Tab) 650 mg Q4H PRN PO MILD PAIN(1-3)OR ELEVATED TEMP; Start 05/19/19 at 10:30 Amlodipine Besylate (Norvasc) 10 mg DAILY PO Last administered on 05/20/19 09:20; Admin Dose 10 MG; Start 05/19/19 at 10:30 Docusate Sodium (Colace) 100 mg QHS PO Last administered on 05/19/19 20:42; Admin Dose 100 MG; Start 05/19/19 at 21:00 Albuterol (Proventil 0.083% (Neb)) 2.5 mg Q6H RESP THERAPY HHN Last administered on 05/20/19 08:26; Admin Dose 2.5 MG; Start 05/20/19 at 02:00 ROSANNE MICHAUD May 20, 2019 10:35
--- NOTE | 2019-05-20 11:20 | CONS ---
Assessment/Plan Assessment/Plan Assessment/Plan (Recall) 53 F c/ reported Hx of aneurysm rupture s/p clipping..., who presents following a suspected seizure..her reported first of life. CXR suggests congestive failure vs. pna; acute systemic illness would certainly lower her seizure threshold.. Head CT is notable for diffuse injury...without obvious acute pathology. P: Await Baseline EEG Continue Keppra for seizure ppx, given extensive encephalomalacia noted on head CT Ativan iv prn prolonged seizure (> 5min) Other management per primary Will follow clinically Consultation Date/Type/Reason Admit Date/Time May 18, 2019 at 04:25 Type of Consult Neurology Reason for Consultation seizure Requesting Provider: KHALIDA BURCIAGA Date/Time of Note DATE: 05/20/19 TIME: 11:19 24 HR Interval Summary Free Text/Dictation Continue acute care Exam/Review of Systems Exam Vitals Vital Signs Date Temp Pulse Resp B/P (MAP) Pulse Ox O2 O2 Flow FiO2 Time Delivery Rate 05/20/19 T Tube 08:30 05/20/19 99 10.0 40 08:20 05/20/19 76 18 08:20 05/20/19 99.0 131/81 07:41 (98) Intake and Output 05/19/19 05/19/19 05/20/19 1515:00 23:00 07:00 IntakeIntake Total 1120 ml 1310 ml BalanceBalance 1120 ml 1310 ml Results Result Diagram: 05/20/19 0643 05/20/19 0643 Results 24hrs Laboratory Tests Test 05/20/19 06:43 White Blood Count 5.8 Red Blood Count 4.07 L Hemoglobin 11.9 L Hematocrit 35.3 L Mean Corpuscular Volume 86.7 Mean Corpuscular Hemoglobin 29.2 Mean Corpuscular Hemoglobin Concent 33.7 Red Cell Distribution Width 12.8 Platelet Count 242 Mean Platelet Volume 11.9 H Immature Granulocytes % 0.200 Neutrophils % 59.0 Lymphocytes % 24.9 Monocytes % 10.9 Eosinophils % 4.7 Basophils % 0.3 Nucleated Red Blood Cells % 0.0 Immature Granulocytes # 0.010 Neutrophils # 3.4 Lymphocytes # 1.4 Monocytes # 0.6 Eosinophils # 0.3 Basophils # 0.0 Nucleated Red Blood Cells # 0.0 Sodium Level 145 H Potassium Level 3.4 L Chloride Level 105 Carbon Dioxide Level 31 Anion Gap 9 Blood Urea Nitrogen 13 Creatinine 0.40 L Est Glomerular Filtrat Rate mL/min > 60 Glucose Level 116 Calcium Level 9.5 Medications Medication Current Medications Lorazepam (Ativan) 1 mg Q1H PRN IV SEIZURE Last administered on 05/19/19 13:35; Admin Dose 1 MG; Start 05/18/19 at 22:00 Acetaminophen (Tylenol Tab) 650 mg Q4H PRN PO MILD PAIN(1-3)OR ELEVATED TEMP; Start 05/19/19 at 10:30 Amlodipine Besylate (Norvasc) 10 mg DAILY PO Last administered on 05/20/19 09:20; Admin Dose 10 MG; Start 05/19/19 at 10:30 Docusate Sodium (Colace) 100 mg QHS PO Last administered on 05/19/19at 20:42; Admin Dose 100 MG; Start 05/19/19 at 21:00 Albuterol (Proventil 0.083% (Neb)) 2.5 mg Q6H RESP THERAPY HHN Last administered on 05/20/19 08:26; Admin Dose 2.5 MG; Start 05/20/19 at 02:00 LAINA VIDAL May 20, 2019 11:20
[2019-05-20 12:55] VITALS: BP 132/85; PULSE 80; RESP 18
--- NOTE | 2019-05-20 14:19 | PN ---
Date/Time of Note Date/Time of Note DATE: 05/20/19 TIME: 14:17 Assessment/Plan VTE Prophylaxis Risk score (from Ns)>0 risk: 7 SCD applied (from Ns): Yes Pharmacological prophylaxis: LMWH Lines/Catheters IV [facility] Type (from [facility] Saline Lock Assessment/Plan Hospital Course Patient is undergoing the EEG, awake, alert. Assessment/Plan -Breakthrough through seizure in patient with seizures. Continue Keppra and Ativan as needed. Continue seizure precautions. is following in neurology consultation. -Chronic respiratory failure with tracheostomy currently on cool aerosol mist. Dr. Blake is following in pulmonology consultation. -Dysphagia with G-tube -Hypertension, continue Norvasc. -History of subarachnoid hemorrhage. Further recommendations based on clinical course. Plan of care discussed with Dr. Metcalf. Result Diagram: 05/20/19 0643 05/20/19 0643 Results 24hrs Laboratory Tests Test 05/20/19 06:43 White Blood Count 5.8 Red Blood Count 4.07 L Hemoglobin 11.9 L Hematocrit 35.3 L Mean Corpuscular Volume 86.7 Mean Corpuscular Hemoglobin 29.2 Mean Corpuscular Hemoglobin Concent 33.7 Red Cell Distribution Width 12.8 Platelet Count 242 Mean Platelet Volume 11.9 H Immature Granulocytes % 0.200 Neutrophils % 59.0 Lymphocytes % 24.9 Monocytes % 10.9 Eosinophils % 4.7 Basophils % 0.3 Nucleated Red Blood Cells % 0.0 Immature Granulocytes # 0.010 Neutrophils # 3.4 Lymphocytes # 1.4 Monocytes # 0.6 Eosinophils # 0.3 Basophils # 0.0 Nucleated Red Blood Cells # 0.0 Sodium Level 145 H Potassium Level 3.4 L Chloride Level 105 Carbon Dioxide Level 31 Anion Gap 9 Blood Urea Nitrogen 13 Creatinine 0.40 L Est Glomerular Filtrat Rate mL/min > 60 Glucose Level 116 Calcium Level 9.5 Exam/Review of Systems Exam Vitals Vital Signs Date Temp Pulse Resp B/P (MAP) Pulse Ox O2 O2 Flow FiO2 Time Delivery Rate 05/20/19 98.0 80 18 132/85 98 12:55 (101) 05/20/19 T Tube 12:18 05/20/19 10.0 40 08:20 Intake and Output 05/19/19 05/19/19 05/20/19 1515:00 23:00 07:00 IntakeIntake Total 1120 ml 1310 ml BalanceBalance 1120 ml 1310 ml Constitutional: alert, oriented Head: normocephalic Neck: other (Tracheostomy) Respiratory: clear to auscultation Cardiovascular: regular rate and rhythm Gastrointestinal: soft, non-tender, other (G-tube) Musculoskeletal: nl extremities to inspection Extremities: normal pulses Neurological: nl mental status Results Results 24hrs Laboratory Tests Test 05/20/19 06:43 White Blood Count 5.8 Red Blood Count 4.07 L Hemoglobin 11.9 L Hematocrit 35.3 L Mean Corpuscular Volume 86.7 Mean Corpuscular Hemoglobin 29.2 Mean Corpuscular Hemoglobin Concent 33.7 Red Cell Distribution Width 12.8 Platelet Count 242 Mean Platelet Volume 11.9 H Immature Granulocytes % 0.200 Neutrophils % 59.0 Lymphocytes % 24.9 Monocytes % 10.9 Eosinophils % 4.7 Basophils % 0.3 Nucleated Red Blood Cells % 0.0 Immature Granulocytes # 0.010 Neutrophils # 3.4 Lymphocytes # 1.4 Monocytes # 0.6 Eosinophils # 0.3 Basophils # 0.0 Nucleated Red Blood Cells # 0.0 Sodium Level 145 H Potassium Level 3.4 L Chloride Level 105 Carbon Dioxide Level 31 Anion Gap 9 Blood Urea Nitrogen 13 Creatinine 0.40 L Est Glomerular Filtrat Rate mL/min > 60 Glucose Level 116 Calcium Level 9.5 Medications Medication Current Medications Lorazepam (Ativan) 1 mg Q1H PRN IV SEIZURE Last administered on 05/19/19 13:35; Admin Dose 1 MG; Start 05/18/19 at 22:00 Acetaminophen (Tylenol Tab) 650 mg Q4H PRN PO MILD PAIN(1-3)OR ELEVATED TEMP; Start 05/19/19 at 10:30 Amlodipine Besylate (Norvasc) 10 mg DAILY PO Last administered on 05/20/19 09:20; Admin Dose 10 MG; Start 05/19/19 at 10:30 Docusate Sodium (Colace) 100 mg QHS PO Last administered on 05/19/19at 20:42; Admin Dose 100 MG; Start 05/19/19 at 21:00 Albuterol (Proventil 0.083% (Neb)) 2.5 mg Q6H RESP THERAPY HHN Last administered on 05/20/19 08:26; Admin Dose 2.5 MG; Start 05/20/19 at 02:00 COBY INFANTE May 20, 2019 14:19
[2019-05-20 16:19] VITALS: BP 135/87; PULSE 87; RESP 18
--- NOTE | 2019-05-20 19:59 | EEG ---
EEG NOTE Report Details DATE OF TEST: 05/20/19 HISTORY: The patient is a 53-year-old F who presents following a first seizure.. This EEG is requested to evaluate for an epileptic disorder. SEDATION: None. CONDITIONS OF RECORDING: This EEG was recorded digitally on the [employer] machine, using the International 10-20 System of electrodes plus anterior temporals and Nz. STATES SAMPLED: Wakefulness and drowsiness. FINDINGS: There is a right hemispheric breach artifact. The background is otherwise predominated by polymorphic slow activity. The normal [id number] frequency-amplitude gradient was absent. Photic stimulation does not elicit any definite driving responses or epileptiform discharges. Hyperventilation was not performed. Toward the culmination of the record, there is an abundance of high frequency artifact. IMPRESSION: Abnormal electroencephalogram due to: diffuse slowing and a right hemispheric breach artifact. COMMENT: The slowing of the background indicates diffuse cortical dysfunction of nonspecific etiology. A right hemispheric breach artifact indicates a skull defect in that region. LAINA VIDAL May 20, 2019 19:59
[2019-05-20 20:15] VITALS: BP 148/84; PULSE 80; RESP 20
[2019-05-20] MEDS: DOCUSATE SODIUM 100 MG CAP PO SCH (21:44)
[2019-05-20] MEDS: LORAZEPAM 2 MG INJ IV PRN (23:24)
[2019-05-21 00:43] VITALS: BP 146/82; PULSE 87; RESP 20
[2019-05-21] MEDS: ALBUTEROL 0.083% (NEB) 2.5 MG/3 ML AMP HHN SCH ×4 (02:16→19:58)
[2019-05-21 04:40] VITALS: BP 100/68; PULSE 66; RESP 20
[2019-05-21 07:58] VITALS: BP 126/78; PULSE 65; RESP 18
[2019-05-21] MEDS: AMLODIPINE 10 MG TAB PO SCH (08:57)
--- NOTE | 2019-05-21 09:32 | CONS ---
Assessment/Plan Assessment/Plan Assessment/Plan (Recall) 53 F c/ reported Hx of aneurysm rupture s/p clipping..., who presents following a suspected seizure..her reported first of life. CXR suggests congestive failure vs. pna; acute systemic illness would certainly lower her seizure threshold.. Head CT is notable for diffuse injury...without obvious acute pathology. EEG is notable for a R hemisphere breach and slowing. P: Continue Keppra for seizure ppx, given extensive encephalomalacia noted on head CT Ativan iv prn prolonged seizure (> 5min) Other management per primary Will follow clinically Consultation Date/Type/Reason Admit Date/Time May 18, 2019 at 04:25 Type of Consult Neurology Reason for Consultation seizure Requesting Provider: KHALIDA BURCIAGA Date/Time of Note DATE: 05/21/19 TIME: 09:31 24 HR Interval Summary Free Text/Dictation Continues acute care Exam/Review of Systems Exam Vitals Vital Signs Date Temp Pulse Resp B/P (MAP) Pulse Ox O2 O2 Flow FiO2 Time Delivery Rate 05/21/19 97.6 65 18 126/78 100 07:58 (94) 05/21/19 10.0 40 05:15 05/21/19 Aerosol 02:20 Mask Intake and Output 05/20/19 05/20/19 05/21/19 1515:00 23:00 07:00 IntakeIntake Total 0 ml 1320 ml BalanceBalance 0 ml 1320 ml Results Result Diagram: 05/20/19 0643 05/20/19 0643 Medications Medication Current Medications Lorazepam (Ativan) 1 mg Q1H PRN IV SEIZURE Last administered on 05/20/19at 23:24; Admin Dose 1 MG; Start 05/18/19 at 22:00 Acetaminophen (Tylenol Tab) 650 mg Q4H PRN PO MILD PAIN(1-3)OR ELEVATED TEMP; Start 05/19/19 at 10:30 Amlodipine Besylate (Norvasc) 10 mg DAILY PO Last administered on 05/21/19at 08:57; Admin Dose 10 MG; Start 05/19/19 at 10:30 Docusate Sodium (Colace) 100 mg QHS PO Last administered on 05/20/19at 21:44; Admin Dose 100 MG; Start 05/19/19 at 21:00 Albuterol (Proventil 0.083% (Neb)) 2.5 mg Q6H RESP THERAPY HHN Last administered on 05/21/19at 08:51; Admin Dose 2.5 MG; Start 05/20/19 at 02:00 LAINA VIDAL May 21, 2019 09:32
[2019-05-21 11:44] VITALS: BP 119/66; PULSE 71; RESP 20
--- NOTE | 2019-05-21 12:11 | CONS ---
Consultation Date/Type/Reason Admit Date/Time May 18, 2019 at 04:25 Initial Consult Date Type of Consult Pulmonary Patient condition is markedly improved. Patient remains completely awake and alert. Has remained hemodynamically stable. No overt seizure activity reported. General exam; young female, awake alert, currently no distress. On T-piece via tracheostomy. Requesting Provider: KHALIDA BURCIAGA Date/Time of Note DATE: 05/21/19 TIME: 12:10 24 HR Interval Summary Free Text/Dictation Patient's condition is stable. Has remained hemodynamically stable. No overt seizure activity reported. General exam; young female, on T-piece via tracheostomy. Currently no distress. H EENT exam; supple neck, no JVD. No lymphadenopathy. Midline trachea. No thyromegaly. Tracheostomy placed. Patient has fair dentition. Chest exam; diminished but clear breath sounds. S1-S2 audible, no murmurs. Regular rhythm. Abdomen exam; soft, no organomegaly. G-tube in place. Bowel sounds are audible. Extremity exam; no peripheral edema. CONDUIT BENDER exam; no focal deficit. Assessment and recommendations; 1. Patient with history of subarachnoid hemorrhage and seizures admitted for breakthrough seizure activity with acute encephalopathy with marked interval improvement. 2. History of respiratory failure, maintained on T-piece. 3. Chronic dysphagia, status post G-tube placement in the past. Continue with supportive care. Consider discharge. Exam/Review of Systems Exam Vitals Vital Signs Date Temp Pulse Resp B/P (MAP) Pulse Ox O2 O2 Flow FiO2 Time Delivery Rate 05/21/19 98.2 71 20 119/66 100 11:44 (83) 05/21/19 Aerosol 10.0 40 09:10 Mask Intake and Output 05/20/19 05/20/19 05/21/19 1515:00 23:00 07:00 IntakeIntake Total 0 ml 1320 ml BalanceBalance 0 ml 1320 ml Results Result Diagram: 05/20/19 0643 05/20/19 0643 Medications Medication Current Medications Lorazepam (Ativan) 1 mg Q1H PRN IV SEIZURE Last administered on 05/20/19at 23:24; Admin Dose 1 MG; Start 05/18/19 at 22:00 Acetaminophen (Tylenol Tab) 650 mg Q4H PRN PO MILD PAIN(1-3)OR ELEVATED TEMP; Start 05/19/19 at 10:30 Amlodipine Besylate (Norvasc) 10 mg DAILY PO Last administered on 05/21/19 08:57; Admin Dose 10 MG; Start 05/19/19 at 10:30 Docusate Sodium (Colace) 100 mg QHS PO Last administered on 05/20/19at 21:44; Admin Dose 100 MG; Start 05/19/19 at 21:00 Albuterol (Proventil 0.083% (Neb)) 2.5 mg Q6H RESP THERAPY HHN Last administered on 05/21/19at 08:51; Admin Dose 2.5 MG; Start 05/20/19 at 02:00 ROSANNE MICHAUD May 21, 2019 12:11
[2019-05-21 15:58] VITALS: BP 121/76; PULSE 69; RESP 19
--- NOTE | 2019-05-21 16:17 | PN ---
Date/Time of Note Date/Time of Note DATE: 05/21/19 TIME: 16:17 Assessment/Plan VTE Prophylaxis Risk score (from Ns)>0 risk: 4 SCD applied (from Ns): Yes Pharmacological prophylaxis: LMWH Lines/Catheters IV Catheter Type (from Nrs): Saline Lock Assessment/Plan Hospital Course Patient is awake alert nods in response to questions, continues on cool aerosol mist via tracheostomy, no seizure reported, continue Keppra. Assessment/Plan -Breakthrough through seizure in patient with seizures. Continue Keppra and Ativan as needed. Continue seizure precautions. is following in neurology consultation. -Chronic respiratory failure with tracheostomy currently on cool aerosol mist. Dr. Blake is following in pulmonology consultation. -Dysphagia with G-tube -Hypertension, continue Norvasc. -History of subarachnoid hemorrhage. Further recommendations based on clinical course. Plan of care discussed with Dr. Metcalf. Result Diagram: 05/20/1943 05/20/19 0643 Exam/Review of Systems Exam Vitals Vital Signs Date Temp Pulse Resp B/P (MAP) Pulse Ox O2 O2 Flow FiO2 Time Delivery Rate 05/21/19 97.8 69 19 121/76 99 15:58 (91) 05/21/19 Aerosol 10.0 40 13:30 Mask Intake and Output 05/20/19 05/20/19 05/21/19 1515:00 23:00 07:00 IntakeIntake Total 0 ml 1320 ml BalanceBalance 0 ml 1320 ml Exam Constitutional: alert, oriented Head: normocephalic Neck: other (Tracheostomy) Respiratory: clear to auscultation Cardiovascular: regular rate and rhythm Gastrointestinal: soft, non-tender, other (G-tube) Musculoskeletal: nl extremities to inspection Extremities: normal pulses Neurological: nl mental status Medications Medication Current Medications Lorazepam (Ativan) 1 mg Q1H PRN IV SEIZURE Last administered on 05/20/19at 23:24; Admin Dose 1 MG; Start 05/18/19 at 22:00 Acetaminophen (Tylenol Tab) 650 mg Q4H PRN PO MILD PAIN(1-3)OR ELEVATED TEMP; Start 05/19/19 at 10:30 Amlodipine Besylate (Norvasc) 10 mg DAILY PO Last administered on 05/21/19at 08:57; Admin Dose 10 MG; Start 05/19/19 at 10:30 Docusate Sodium (Colace) 100 mg QHS PO Last administered on 05/20/19at 21:44; Admin Dose 100 MG; Start 05/19/19 at 21:00 Albuterol (Proventil 0.083% (Neb)) 2.5 mg Q6H RESP THERAPY HHN Last administered on 05/21/19at 13:38; Admin Dose 2.5 MG; Start 05/20/19 at 02:00 COBY INFANTE May 21, 2019 16:17
[2019-05-21 20:11] VITALS: BP 123/80; PULSE 64; RESP 18
[2019-05-21] MEDS: DOCUSATE SODIUM 100 MG CAP PO SCH (22:36)
[2019-05-22 00:54] VITALS: BP 120/78; PULSE 80; RESP 18
[2019-05-22] MEDS: ALBUTEROL 0.083% (NEB) 2.5 MG/3 ML AMP HHN SCH ×4 (01:23→19:43)
[2019-05-22] MEDS: LEVETIRACETAM 500 MG (PMX) 100 ML IVPB SCH ×3 (01:31→20:49)
[2019-05-22] MEDS ORDERED: POTASSIUM CHLORIDE 20 MEQ POWDER FOR ORAL SOLN GTB ONE (03:00)
[2019-05-22 04:25] VITALS: BP 136/83; PULSE 78; RESP 78
[2019-05-22 07:53] VITALS: BP 127/72; PULSE 70; RESP 22
[2019-05-22] MEDS: AMLODIPINE 10 MG TAB PO SCH (08:47)
--- NOTE | 2019-05-22 10:41 | CONS ---
Assessment/Plan Assessment/Plan Assessment/Plan (Daily) Assessment and recommendations; 1. Patient with history of subarachnoid hemorrhage admitted for seizures with marked overall interval improvement. 2. Acute encephalopathy with interval resolution. 3. Chronic respiratory failure, maintained on T-piece. Continue current supportive care. Consider discharge. Consultation Date/Type/Reason Admit Date/Time May 18, 2019 at 04:25 Initial Consult Date Type of Consult Pulmonary Patient condition is markedly improved. Patient remains completely awake and alert. Has remained hemodynamically stable. No overt seizure activity reported. General exam; young female, awake alert, currently no distress. On T-piece via tracheostomy. Requesting Provider: KHALIDA BURCIAGA Date/Time of Note DATE: 05/22/19 TIME: 10:39 24 HR Interval Summary Free Text/Dictation Patient's condition is stable. Has remained hemodynamically stable. No overt seizure activity reported. General exam; middle-aged female, awake and alert. Currently no distress. On T-piece via tracheostomy. Exam/Review of Systems Exam Vitals Vital Signs Date Temp Pulse Resp B/P (MAP) Pulse Ox O2 O2 Flow FiO2 Time Delivery Rate 05/22/19 97 8.0 35 08:40 05/22/19 77 20 Aerosol 08:39 T Tube 05/22/19 97.8 127/72 07:53 (90) Intake and Output 05/21/19 05/21/19 05/22/19 1515:00 23:00 07:00 IntakeIntake Total 1840 ml 1220 ml BalanceBalance 1840 ml 1220 ml Exam H EENT exam; supple neck, no JVD. No lymphadenopathy. Midline trachea. No thyromegaly. Patient has fair dentition. Tracheostomy in place. Chest exam; diminished but clear breath sounds. S1-S2 audible, no murmurs. Regular rhythm. Abdomen exam; soft, nontender. No organomegaly. Bowel sounds are audible. G- tube in place. Extremity exam; no peripheral edema clubbing. 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 Results Result Diagram: 05/20/19 0643 05/20/19 0643 Medications Medication Current Medications Lorazepam (Ativan) 1 mg Q1H PRN IV SEIZURE Last administered on 05/20/19at 23:24; Admin Dose 1 MG; Start 05/18/19 at 22:00 Acetaminophen (Tylenol Tab) 650 mg Q4H PRN PO MILD PAIN(1-3)OR ELEVATED TEMP; Start 05/19/19 at 10:30 Amlodipine Besylate (Norvasc) 10 mg DAILY PO Last administered on 05/22/19 08:47; Admin Dose 10 MG; Start 05/19/19 at 10:30 Docusate Sodium (Colace) 100 mg QHS PO Last administered on 05/21/19 22:36; Admin Dose 100 MG; Start 05/19/19 at 21:00 Albuterol (Proventil 0.083% (Neb)) 2.5 mg Q6H RESP THERAPY HHN Last administered on 05/22/19 08:35; Admin Dose 2.5 MG; Start 05/20/19 at 02:00 Levetiracetam 100 ml @ 400 mls/hr Q12 IVPB Last administered on 05/22/19 08:46; Admin Dose 400 MLS/HR; Start 05/22/19 at 01:00 ROSANNE MICHAUD May 22, 2019 10:41
[2019-05-22 11:52] VITALS: BP 121/69; PULSE 76; RESP 22
--- NOTE | 2019-05-22 13:00 | CONS ---
Assessment/Plan Assessment/Plan Assessment/Plan (Recall) 53 F c/ reported Hx of aneurysm rupture s/p clipping..., who presents following a suspected seizure..her reported first of life. CXR suggests congestive failure vs. pna; acute systemic illness would certainly lower her seizure threshold.. Head CT is notable for diffuse injury...without obvious acute pathology. EEG is notable for a R hemisphere breach and slowing. P: Continue Keppra for seizure ppx, given extensive encephalomalacia noted on head CT Ativan iv prn prolonged seizure (> 5min) Other management per primary Will follow clinically Consultation Date/Type/Reason Admit Date/Time May 18, 2019 at 04:25 Type of Consult Neurology Reason for Consultation seizure Requesting Provider: KHALIDA BURCIAGA Date/Time of Note DATE: 05/22/19 TIME: 13:00 24 HR Interval Summary Free Text/Dictation Continues acute care Exam/Review of Systems Exam Vitals Vital Signs Date Temp Pulse Resp B/P (MAP) Pulse Ox O2 O2 Flow FiO2 Time Delivery Rate 05/22/19 97.6 76 22 121/69 96 T Tube 11:52 (86) Trach Collar 05/22/19 8.0 35 11:38 Intake and Output 05/21/19 05/21/19 05/22/19 1515:00 23:00 07:00 IntakeIntake Total 1840 ml 1220 ml BalanceBalance 1840 ml 1220 ml Results Result Diagram: 05/20/19 0643 05/20/19 0643 Medications Medication Current Medications Lorazepam (Ativan) 1 mg Q1H PRN IV SEIZURE Last administered on 05/20/19at 23:24; Admin Dose 1 MG; Start 05/18/19 at 22:00 Acetaminophen (Tylenol Tab) 650 mg Q4H PRN PO MILD PAIN(1-3)OR ELEVATED TEMP; Start 05/19/19 at 10:30 Amlodipine Besylate (Norvasc) 10 mg DAILY PO Last administered on 05/22/19at 08:47; Admin Dose 10 MG; Start 05/19/19 at 10:30 Docusate Sodium (Colace) 100 mg QHS PO Last administered on 05/21/19at 22:36; Admin Dose 100 MG; Start 05/19/19 at 21:00 Albuterol (Proventil 0.083% (Neb)) 2.5 mg Q6H RESP THERAPY HHN Last administered on 05/22/19 08:35; Admin Dose 2.5 MG; Start 05/20/19 at 02:00 Levetiracetam 100 ml @ 400 mls/hr Q12 IVPB Last administered on 05/22/19 08:46; Admin Dose 400 MLS/HR; Start 05/22/19 at 01:00 LAINA VIDAL May 22, 2019 13:00
[2019-05-22 15:53] VITALS: BP 117/70; PULSE 71; RESP 22
--- NOTE | 2019-05-22 18:07 | PN ---
Date/Time of Note Date/Time of Note DATE: 05/22/19 TIME: 18:07 Assessment/Plan VTE Prophylaxis Risk score (from Ns)>0 risk: 4 SCD applied (from Ns): Yes Pharmacological prophylaxis: LMWH Lines/Catheters IV Catheter Type (from Nrs): Saline Lock Urinary Cath still in place: No Assessment/Plan Hospital Course Patient is awake alert, nods in response to questions, no seizure activity reported, continue seizure precautions. Patient continues on cool aerosol mist via tracheostomy. Peters eval. Assessment/Plan -Breakthrough through seizure in patient with seizures. Continue Keppra and Ativan as needed. Continue seizure precautions. is following in neurology consultation. -Chronic respiratory failure with tracheostomy currently on cool aerosol mist. Dr. Blake is following in pulmonology consultation. -Dysphagia with G-tube -Hypertension, continue Norvasc. -History of subarachnoid hemorrhage. Further recommendations based on clinical course. Plan of care discussed with Dr. Metcalf. Result Diagram: 05/20/1943 05/20/19 0643 Exam/Review of Systems Exam Vitals Vital Signs Date Temp Pulse Resp B/P (MAP) Pulse Ox O2 O2 Flow FiO2 Time Delivery Rate 05/22/19 98.0 71 22 117/70 96 T Tube 15:53 (86) Trach Collar 05/22/19 8.0 35 14:28 Intake and Output 05/21/19 05/21/19 05/22/19 1515:00 23:00 07:00 IntakeIntake Total 1840 ml 1220 ml BalanceBalance 1840 ml 1220 ml Exam Constitutional: alert, oriented Head: normocephalic Neck: other (Tracheostomy) Respiratory: clear to auscultation Cardiovascular: regular rate and rhythm Gastrointestinal: soft, non-tender, other (G-tube) Musculoskeletal: nl extremities to inspection Extremities: normal pulses Neurological: nl mental status Medications Medication Current Medications Lorazepam (Ativan) 1 mg Q1H PRN IV SEIZURE Last administered on 05/20/19at 23:24; Admin Dose 1 MG; Start 05/18/19 at 22:00 Acetaminophen (Tylenol Tab) 650 mg Q4H PRN PO MILD PAIN(1-3)OR ELEVATED TEMP; Start 05/19/19 at 10:30 Amlodipine Besylate (Norvasc) 10 mg DAILY PO Last administered on 05/22/19 08:47; Admin Dose 10 MG; Start 05/19/19 at 10:30 Docusate Sodium (Colace) 100 mg QHS PO Last administered on 05/21/19 22:36; Admin Dose 100 MG; Start 05/19/19 at 21:00 Albuterol (Proventil 0.083% (Neb)) 2.5 mg Q6H RESP THERAPY HHN Last administ ered on 05/22/19 14:25; Admin Dose 2.5 MG; Start 05/20/19 at 02:00 Levetiracetam 100 ml @ 400 mls/hr Q12 IVPB Last administered on 05/22/19 08:46; Admin Dose 400 MLS/HR; Start 05/22/19 at 01:00 COBY INFANTE May 22, 2019 18:07
[2019-05-22 19:11] VITALS: BP 134/83; PULSE 70; RESP 18
[2019-05-22] MEDS: DOCUSATE SODIUM 100 MG CAP PO SCH (20:49)
[2019-05-22] MEDS: LORAZEPAM 2 MG INJ IV PRN (20:53)
[2019-05-23 00:15] VITALS: BP 130/80; PULSE 69; RESP 17
[2019-05-23] MEDS: ALBUTEROL 0.083% (NEB) 2.5 MG/3 ML AMP HHN SCH ×4 (01:27→20:01)
[2019-05-23 07:34] VITALS: BP 118/75; PULSE 60; RESP 20
[2019-05-23] MEDS: AMLODIPINE 10 MG TAB PO SCH (09:16)
[2019-05-23] MEDS: LEVETIRACETAM 500 MG (PMX) 100 ML IVPB SCH ×2 (09:16→20:44)
--- NOTE | 2019-05-23 10:43 | CONS ---
Assessment/Plan Assessment/Plan Assessment/Plan (Daily) Assessment and recommendations; 1. Patient with history of subarachnoid hemorrhage admitted for seizures with marked overall clinical improvement. 2. History of hypertension 3. History of respiratory failure maintained on T-piece with adequate pulmonary status. Continue current supportive care. Consider discharge. Consultation Date/Type/Reason Admit Date/Time May 18, 2019 at 04:25 Initial Consult Date Type of Consult Pulmonary Patient condition is markedly improved. Patient remains completely awake and alert. Has remained hemodynamically stable. No overt seizure activity reported. General exam; young female, awake alert, currently no distress. On T-piece via tracheostomy. Requesting Provider: KHALIDA BURCIAGA Date/Time of Note DATE: 05/23/19 TIME: 10:41 24 HR Interval Summary Free Text/Dictation Patient's condition is stable. Has remained hemodynamically stable. No overt seizure activity reported. General exam; middle-aged female, on T-piece via tracheostomy. Exam/Review of Systems Exam Vitals Vital Signs Date Temp Pulse Resp B/P (MAP) Pulse Ox O2 O2 Flow FiO2 Time Delivery Rate 05/23/19 8.0 35 08:14 05/23/19 68 20 96 Aerosol 08:14 05/23/19 97.7 118/75 07:34 (89) Intake and Output 05/22/19 05/22/19 05/23/19 1515:00 23:00 07:00 IntakeIntake Total 100 ml 1220 ml OutputOutput Total 4 ml BalanceBalance 100 ml -4 ml 1220 ml Exam H EENT exam; supple neck, no JVD. No lymphadenopathy. Midline trachea. No thyromegaly. Tracheostomy in place. Insertion site is clean. Attached to T- piece. Patient has fair dentition. Chest exam; clear to auscultation. S1-S2 audible, no murmurs. Regular rhythm. Abdomen exam; soft, nontender. No organomegaly. Bowel sounds are audible. Extremity exam; no peripheral edema. Results Result Diagram: 05/23/1960405/23/19 06 Results 24hrs Laboratory Tests Test 05/23/19 06:05 White Blood Count 8.9 # Red Blood Count 3.73 L Hemoglobin 11.0 L Hematocrit 32.9 L Mean Corpuscular Volume 88.2 Mean Corpuscular Hemoglobin 29.5 Mean Corpuscular Hemoglobin Concent 33.4 Red Cell Distribution Width 12.8 Platelet Count 199 Mean Platelet Volume 11.3 H Immature Granulocytes % 0.500 H Neutrophils % 67.4 Lymphocytes % 20.1 Monocytes % 8.1 Eosinophils % 3.6 Basophils % 0.3 Nucleated Red Blood Cells % 0.0 Immature Granulocytes # 0.040 H Neutrophils # 6.0 Lymphocytes # 1.8 Monocytes # 0.7 Eosinophils # 0.3 Basophils # 0.0 Nucleated Red Blood Cells # 0.0 Sodium Level 146 H Potassium Level 3.5 Chloride Level 105 Carbon Dioxide Level 31 Anion Gap 10 Blood Urea Nitrogen 12 Creatinine 0.45 Est Glomerular Filtrat Rate mL/min > 60 Glucose Level 118 Calcium Level 9.1 Medications Medication Current Medications Lorazepam (Ativan) 1 mg Q1H PRN IV SEIZURE Last administered on 05/22/19 20:53; Admin Dose 1 MG; Start 05/18/19 at 22:00 Acetaminophen (Tylenol Tab) 650 mg Q4H PRN PO MILD PAIN(1-3)OR ELEVATED TEMP; Start 05/19/19 at 10:30 Amlodipine Besylate (Norvasc) 10 mg DAILY PO Last administered on 05/23/19 09:16; Admin Dose 10 MG; Start 05/19/19 at 10:30 Docusate Sodium (Colace) 100 mg QHS PO Last administered on 05/22/19 20:49; Admin Dose 100 MG; Start 05/19/19 at 21:00 Albuterol (Proventil 0.083% (Neb)) 2.5 mg Q6H RESP THERAPY HHN Last administered on 05/23/19 08:13; Admin Dose 2.5 MG; Start 05/20/19 at 02:00 Levetiracetam 100 ml @ 400 mls/hr Q12 IVPB Last administered on 05/23/19 09:16; Admin Dose 400 MLS/HR; Start 05/22/19 at 01:00 ROSANNE MICHAUD May 23, 2019 10:43
[2019-05-23 11:10] VITALS: BP 111/69; PULSE 64; RESP 20
--- NOTE | 2019-05-23 14:10 | PN ---
Date/Time of Note Date/Time of Note DATE: 05/23/19 TIME: 14:09 Assessment/Plan VTE Prophylaxis Risk score (from Ns)>0 risk: 2 [place] [facility] [place] Pharmacological prophylaxis: NA/contraindicated Pharm contraindication: hemorrhagic infarct Lines/Catheters [facility]from [facility] Saline Lock Urinary Cath still in place: No Assessment/Plan Hospital Course No acute events overnight, patient is awake alert, pending Peters eval. Assessment/Plan -Breakthrough through seizure in patient with seizures. Continue Keppra and Ativan as needed. Continue seizure precautions. is following in neurology consultation. -Chronic respiratory failure with tracheostomy currently on cool aerosol mist. Dr. Blake is following in pulmonology consultation. -Dysphagia with G-tube -Hypertension, continue Norvasc. -History of subarachnoid hemorrhage. Further recommendations based on clinical course. Plan of care discussed with Dr. Metcalf. Result Diagram: 05/23/19 0605 05/23/19 0605 Results 24hrs Laboratory Tests Test 05/23/19 06:05 White Blood Count 8.9 # Red Blood Count 3.73 L Hemoglobin 11.0 L Hematocrit 32.9 L Mean Corpuscular Volume 88.2 Mean Corpuscular Hemoglobin 29.5 Mean Corpuscular Hemoglobin Concent 33.4 Red Cell Distribution Width 12.8 Platelet Count 199 Mean Platelet Volume 11.3 H Immature Granulocytes % 0.500 H Neutrophils % 67.4 Lymphocytes % 20.1 Monocytes % 8.1 Eosinophils % 3.6 Basophils % 0.3 Nucleated Red Blood Cells % 0.0 Immature Granulocytes # 0.040 H Neutrophils # 6.0 Lymphocytes # 1.8 Monocytes # 0.7 Eosinophils # 0.3 Basophils # 0.0 Nucleated Red Blood Cells # 0.0 Sodium Level 146 H Potassium Level 3.5 Chloride Level 105 Carbon Dioxide Level 31 Anion Gap 10 Blood Urea Nitrogen 12 Creatinine 0.45 Est Glomerular Filtrat Rate mL/min > 60 Glucose Level 118 Calcium Level 9.1 Exam/Review of Systems Exam Vitals Vital Signs Date Temp Pulse Resp B/P (MAP) Pulse Ox O2 O2 Flow FiO2 Time Delivery Rate 05/23/19 98.3 64 20 111/69 99 Trach 11:10 (83) Collar 05/23/19 8.0 35 08:14 Intake and Output 705/22/19 05/23/19 1414:59 22:59 06:59 IntakeIntake Total 100 ml 1220 ml OutputOutput Total 4 ml BalanceBalance 100 ml -4 ml 1220 ml Exam Constitutional: alert, oriented Head: normocephalic Neck: other (Tracheostomy) Respiratory: clear to auscultation Cardiovascular: regular rate and rhythm Gastrointestinal: soft, non-tender, other (G-tube) Musculoskeletal: nl extremities to inspection Extremities: normal pulses Neurological: nl mental status Results Results 24hrs Laboratory Tests Test 05/23/19 06:05 White Blood Count 8.9 # Red Blood Count 3.73 L Hemoglobin 11.0 L Hematocrit 32.9 L Mean Corpuscular Volume 88.2 Mean Corpuscular Hemoglobin 29.5 Mean Corpuscular Hemoglobin Concent 33.4 Red Cell Distribution Width 12.8 Platelet Count 199 Mean Platelet Volume 11.3 H Immature Granulocytes % 0.500 H Neutrophils % 67.4 Lymphocytes % 20.1 Monocytes % 8.1 Eosinophils % 3.6 Basophils % 0.3 Nucleated Red Blood Cells % 0.0 Immature Granulocytes # 0.040 H Neutrophils # 6.0 Lymphocytes # 1.8 Monocytes # 0.7 Eosinophils # 0.3 Basophils # 0.0 Nucleated Red Blood Cells # 0.0 Sodium Level 146 H Potassium Level 3.5 Chloride Level 105 Carbon Dioxide Level 31 Anion Gap 10 Blood Urea Nitrogen 12 Creatinine 0.45 Est Glomerular Filtrat Rate mL/min > 60 Glucose Level 118 Calcium Level 9.1 Medications Medication Current Medications Lorazepam (Ativan) 1 mg Q1H PRN IV SEIZURE Last administered on 05/22/19at 20:53; Admin Dose 1 MG; Start 05/18/19 at 22:00 Acetaminophen (Tylenol Tab) 650 mg Q4H PRN PO MILD PAIN(1-3)OR ELEVATED TEMP; Start 05/19/19 at 10:30 Amlodipine Besylate (Norvasc) 10 mg DAILY PO Last administered on 05/23/19at 09:16; Admin Dose 10 MG; Start 05/19/19 at 10:30 Docusate Sodium (Colace) 100 mg QHS PO Last administered on 05/22/19at 20:49; Admin Dose 100 MG; Start 05/19/19 at 21:00 Albuterol (Proventil 0.083% (Neb)) 2.5 mg Q6H RESP THERAPY HHN Last administered on 05/23/19at 08:13; Admin Dose 2.5 MG; Start 05/20/19 at 02:00 Levetiracetam 100 ml @ 400 mls/hr Q12 IVPB Last administered on 05/23/19 09:16; Admin Dose 400 MLS/HR; Start 05/22/19 at 01:00 COBY INFANTE May 23, 2019 14:10
[2019-05-23 14:59] VITALS: BP 115/69; PULSE 76; RESP 20
--- NOTE | 2019-05-23 15:42 | CONS ---
Assessment/Plan Assessment/Plan Assessment/Plan (Recall) 53 F c/ reported Hx of aneurysm rupture s/p clipping..., who presents following a suspected seizure..her reported first of life. CXR suggests congestive failure vs. pna; acute systemic illness would certainly lower her seizure threshold.. Head CT is notable for diffuse injury...without obvious acute pathology. EEG is notable for a R hemisphere breach and slowing. P: Continue Keppra for seizure ppx, given extensive encephalomalacia noted on head CT Ativan iv prn prolonged seizure (> 5min) Other management per primary Will follow clinically Consultation Date/Type/Reason Admit Date/Time May 18, 2019 at 04:25 Type of Consult Neurology Reason for Consultation seizure Requesting Provider: KHALIDA BURCIAGA Date/Time of Note DATE: 05/23/19 TIME: 15:42 24 HR Interval Summary Free Text/Dictation Continues acute care Exam/Review of Systems Exam Vitals Vital Signs Date Temp Pulse Resp B/P (MAP) Pulse Ox O2 O2 Flow FiO2 Time Delivery Rate 05/23/19 97.9 76 20 115/69 97 Trach 14:59 (84) Collar 05/23/19 8.0 35 14:28 Intake and Output 05/22/19 05/22/19 05/23/19 1515:00 23:00 07:00 IntakeIntake Total 100 ml 1220 ml OutputOutput Total 4 ml BalanceBalance 100 ml -4 ml 1220 ml Results Result Diagram: 05/23/19 0605 05/23/19 0605 Results 24hrs Laboratory Tests Test 05/23/19 06:05 White Blood Count 8.9 # Red Blood Count 3.73 L Hemoglobin 11.0 L Hematocrit 32.9 L Mean Corpuscular Volume 88.2 Mean Corpuscular Hemoglobin 29.5 Mean Corpuscular Hemoglobin Concent 33.4 Red Cell Distribution Width 12.8 Platelet Count 199 Mean Platelet Volume 11.3 H Immature Granulocytes % 0.500 H Neutrophils % 67.4 Lymphocytes % 20.1 Monocytes % 8.1 Eosinophils % 3.6 Basophils % 0.3 Nucleated Red Blood Cells % 0.0 Immature Granulocytes # 0.040 H Neutrophils # 6.0 Lymphocytes # 1.8 Monocytes # 0.7 Eosinophils # 0.3 Basophils # 0.0 Nucleated Red Blood Cells # 0.0 Sodium Level 146 H Potassium Level 3.5 Chloride Level 105 Carbon Dioxide Level 31 Anion Gap 10 Blood Urea Nitrogen 12 Creatinine 0.45 Est Glomerular Filtrat Rate mL/min > 60 Glucose Level 118 Calcium Level 9.1 Medications Medication Current Medications Lorazepam (Ativan) 1 mg Q1H PRN IV SEIZURE Last administered on 05/22/19 20:53; Admin Dose 1 MG; Start 05/18/19 at 22:00 Acetaminophen (Tylenol Tab) 650 mg Q4H PRN PO MILD PAIN(1-3)OR ELEVATED TEMP; Start 05/19/19 at 10:30 Amlodipine Besylate (Norvasc) 10 mg DAILY PO Last administered on 05/23/19 09:16; Admin Dose 10 MG; Start 05/19/19 at 10:30 Docusate Sodium (Colace) 100 mg QHS PO Last administered on 05/22/19 20:49; Admin Dose 100 MG; Start 05/19/19 at 21:00 Albuterol (Proventil 0.083% (Neb)) 2.5 mg Q6H RESP THERAPY HHN Last administered on 05/23/19 14:26; Admin Dose 2.5 MG; Start 05/20/19 at 02:00 Levetiracetam 100 ml @ 400 mls/hr Q12 IVPB Last administered on 05/23/19 09:16; Admin Dose 400 MLS/HR; Start 05/22/19 at 01:00 LAINA VIDAL May 23, 2019 15:42
[2019-05-23 19:48] VITALS: BP 111/75; PULSE 69; RESP 17
[2019-05-23] MEDS: DOCUSATE SODIUM 100 MG CAP PO SCH (20:45)
[2019-05-24] VITALS: BP 115/72; PULSE 60; RESP 17
[2019-05-24] MEDS: ALBUTEROL 0.083% (NEB) 2.5 MG/3 ML AMP HHN SCH ×5 (01:14→20:18)
[2019-05-24 04:44] VITALS: BP 119/73; PULSE 61; RESP 17
[2019-05-24 07:30] VITALS: BP 108/67; PULSE 57; RESP 20
[2019-05-24] MEDS: AMLODIPINE 10 MG TAB PO SCH (09:19)
[2019-05-24] MEDS: LEVETIRACETAM 500 MG (PMX) 100 ML IVPB SCH ×2 (09:19→20:56)
--- NOTE | 2019-05-24 11:02 | CONS ---
Consultation Date/Type/Reason Admit Date/Time May 18, 2019 at 04:25 Initial Consult Date Type of Consult Pulmonary Patient condition is markedly improved. Patient remains completely awake and alert. Has remained hemodynamically stable. No overt seizure activity reported. General exam; young female, awake alert, currently no distress. On T-piece via tracheostomy. Requesting Provider: KHALIDA BURCIAGA Date/Time of Note DATE: 05/24/19 TIME: 11:00 24 HR Interval Summary Free Text/Dictation Patient's condition has remained stable. Has remained hemodynamically stable. No untoward events reported. No further seizure activity reported as well. General exam; young female, currently no distress. On T-piece via tracheostomy. Awake and alert. HEENT exam; supple neck, no JVD. No lymphadenopathy. Midline trachea. No thyromegaly. Tracheostomy in place. Chest exam; clear to auscultation. S1-S2 audible, no murmurs. Regular rhythm. Abdomen exam; soft, G-tube in place. Nontender. No organomegaly. Nondistended. Bowel sounds are audible. Extremity exam; no peripheral edema clubbing. AVICULTURIST exam; no focal deficit. Assessment and recommendations; 1. Patient admitted with acute encephalopathy from seizures with marked overall interval improvement. 2. Chronic respiratory failure maintained on T-piece with stable pulmonary status. 3. History of dysphagia, status post G-tube placement in the past. 4. History of subarachnoid hemorrhage. Continue current supportive care. Consider discharge to retirement. Exam/Review of Systems Exam Vitals Vital Signs Date Temp Pulse Resp B/P (MAP) Pulse Ox O2 O2 Flow FiO2 Time Delivery Rate 05/24/19 5.0 28 08:50 05/24/19 62 18 100 Aerosol 08:50 05/24/19 97.7 108/67 07:30 (81) Intake and Output 05/23/19 05/23/19 05/24/19 1515:00 23:00 07:00 IntakeIntake Total 1140 ml BalanceBalance 1140 ml Results Result Diagram: 05/23/19 0605/23/19 06 Medications Medication Current Medications Lorazepam (Ativan) 1 mg Q1H PRN IV SEIZURE Last administered on 05/22/19at 20:53; Admin Dose 1 MG; Start 05/18/19 at 22:00 Acetaminophen (Tylenol Tab) 650 mg Q4H PRN PO MILD PAIN(1-3)OR ELEVATED TEMP; Start 05/19/19 at 10:30 Amlodipine Besylate (Norvasc) 10 mg DAILY PO Last administered on 05/24/19 09:19; Admin Dose 10 MG; Start 05/19/19 at 10:30 Docusate Sodium (Colace) 100 mg QHS PO Last administered on 05/23/19 20:45; Admin Dose 100 MG; Start 05/19/19 at 21:00 Albuterol (Proventil 0.083% (Neb)) 2.5 mg Q6H RESP THERAPY HHN Last administered on 05/24/19 08:50; Admin Dose 2.5 MG; Start 05/20/19 at 02:00 Levetiracetam 100 ml @ 400 mls/hr Q12 IVPB Last administered on 05/24/19 09:19; Admin Dose 400 MLS/HR; Start 05/22/19 at 01:00 ROSANNE MICHAUD May 24, 2019 11:02
[2019-05-24 11:17] VITALS: BP 113/76; PULSE 70; RESP 20
--- NOTE | 2019-05-24 11:22 | PN ---
Date/Time of Note Date/Time of Note DATE: 05/24/19 TIME: 11:18 Assessment/Plan VTE Prophylaxis Risk score (from Ns)>0 risk: 3 SCD applied (from Ns): Yes SCD contraindicated: other Pharmacological prophylaxis: other Pharm contraindication: other Lines/Catheters IV Catheter Type (from Nrsg): Peripheral IV Urinary Cath still in place: No Assessment/Plan Assessment/Plan -Breakthrough through seizure in patient with seizures. Continue Keppra and Ativan as needed. Continue seizure precautions. is following in neurology consultation. -Chronic respiratory failure with tracheostomy currently on cool aerosol mist. Dr. Blake is following in pulmonology consultation. -Dysphagia with G-tube -Hypertension, continue Norvasc. -History of subarachnoid hemorrhage. Further recommendations based on clinical course. Plan of care discussed with Dr. Metcalf. Result Diagram: 05/23/1960405/23/19604 Subjective 24 Hr Interval Summary Free Text/Dictation - NAD - afebrile - No acute events overnight, patient is awake alert - pending Peters eval. Constitutional: requiring IVF, requiring O2 Exam/Review of Systems Exam Vitals Vital Signs Date Temp Pulse Resp B/P (MAP) Pulse Ox O2 O2 Flow FiO2 Time Delivery Rate 05/24/19 98.1 70 20 113/76 100 Trach 11:17 (88) Collar 05/24/19 5.0 28 08:50 Intake and Output 05/23/19 05/23/19 05/24/19 1515:00 23:00 07:00 IntakeIntake Total 1140 ml BalanceBalance 1140 ml Constitutional: alert, well developed Psych: nl mood/affect Eyes: nl lids, nl sclera ENMT: nl external ears & nose Neck: non-tender, other (trach inatct) Cardiovascular: nl pulses, other (s1s2) Gastrointestinal: soft, other (GT inatct) Musculoskeletal: muscle weakness Neurological: other (very alert/responsive) Medications Medication Current Medications Lorazepam (Ativan) 1 mg Q1H PRN IV SEIZURE Last administered on 05/22/19at 20:53; Admin Dose 1 MG; Start 05/18/19 at 22:00 Acetaminophen (Tylenol Tab) 650 mg Q4H PRN PO MILD PAIN(1-3)OR ELEVATED TEMP; Start 05/19/19 at 10:30 Amlodipine Besylate (Norvasc) 10 mg DAILY PO Last administered on 05/24/19at 09:19; Admin Dose 10 MG; Start 05/19/19 at 10:30 Docusate Sodium (Colace) 100 mg QHS PO Last administered on 05/23/19at 20:45; Admin Dose 100 MG; Start 05/19/19 at 21:00 Albuterol (Proventil 0.083% (Neb)) 2.5 mg Q6H RESP THERAPY HHN Last administered on 05/24/19at 08:50; Admin Dose 2.5 MG; Start 05/20/19 at 02:00 Levetiracetam 100 ml @ 400 mls/hr Q12 IVPB Last administered on 05/24/19 09:19; Admin Dose 400 MLS/HR; Start 05/22/19 at 01:00 KHALIDA BURCIAGA May 24, 2019 11:22
[2019-05-24 14:59] VITALS: BP 117/74; PULSE 65; RESP 20
--- NOTE | 2019-05-24 15:59 | CONS ---
Assessment/Plan Assessment/Plan Assessment/Plan (Recall) 53 F c/ reported Hx of aneurysm rupture s/p clipping..., who presents following a suspected seizure..her reported first of life. CXR suggests congestive failure vs. pna; acute systemic illness would certainly lower her seizure threshold.. Head CT is notable for diffuse injury...without obvious acute pathology. EEG is notable for a R hemisphere breach and slowing. P: Continue Keppra for seizure ppx, given extensive encephalomalacia noted on head CT Ativan iv prn prolonged seizure (> 5min) Other management per primary Will follow clinically Consultation Date/Type/Reason Admit Date/Time May 18, 2019 at 04:25 Type of Consult Neurology Reason for Consultation seizure Requesting Provider: KHALIDA BURCIAGA Date/Time of Note DATE: 05/24/19 TIME: 15:59 24 HR Interval Summary Free Text/Dictation Continues acute care Exam/Review of Systems Exam Vitals Vital Signs Date Temp Pulse Resp B/P (MAP) Pulse Ox O2 O2 Flow FiO2 Time Delivery Rate 05/24/19 98.2 65 20 117/74 96 Trach 14:59 (88) Collar 05/24/19 5.0 28 08:50 Intake and Output 05/23/19 05/23/19 05/24/19 1515:00 23:00 07:00 IntakeIntake Total 1140 ml BalanceBalance 1140 ml Results Result Diagram: 05/23/1960405/23/19604 Medications Medication Current Medications Lorazepam (Ativan) 1 mg Q1H PRN IV SEIZURE Last administered on 05/22/19at 20:53; Admin Dose 1 MG; Start 05/18/19 at 22:00 Acetaminophen (Tylenol Tab) 650 mg Q4H PRN PO MILD PAIN(1-3)OR ELEVATED TEMP; Start 05/19/19 at 10:30 Amlodipine Besylate (Norvasc) 10 mg DAILY PO Last administered on 05/24/19at 09:19; Admin Dose 10 MG; Start 05/19/19 at 10:30 Docusate Sodium (Colace) 100 mg QHS PO Last administered on 05/23/19at 20:45; Admin Dose 100 MG; Start 05/19/19 at 21:00 Albuterol (Proventil 0.083% (Neb)) 2.5 mg Q6H RESP THERAPY HHN Last administered on 05/24/19at 13:45; Admin Dose 2.5 MG; Start 05/20/19 at 02:00 Levetiracetam 100 ml @ 400 mls/hr Q12 IVPB Last administered on 05/24/19at 09:19; Admin Dose 400 MLS/HR; Start 05/22/19 at 01:00 LAINA VIDAL May 24, 2019 15:59
[2019-05-24 20:04] VITALS: BP 124/67; PULSE 67; RESP 18
[2019-05-24] MEDS: DOCUSATE SODIUM 100 MG CAP PO SCH (20:56)
[2019-05-25] MEDS: ACETAMINOPHEN 325 MG TAB PO PRN ×2 (00:18→04:03)
[2019-05-25 00:26] VITALS: BP 137/83; PULSE 95; RESP 18
[2019-05-25 04:12] VITALS: BP 117/72; PULSE 89; RESP 18
[2019-05-25 07:21] VITALS: BP 104/66; PULSE 73; RESP 17
[2019-05-25] MEDS: AMLODIPINE 10 MG TAB PO SCH (08:17)
[2019-05-25] MEDS: LEVETIRACETAM 500 MG (PMX) 100 ML IVPB SCH ×2 (08:17→21:18)
[2019-05-25] MEDS: ALBUTEROL 0.083% (NEB) 2.5 MG/3 ML AMP HHN SCH ×3 (08:45→19:24)
--- NOTE | 2019-05-25 11:06 | PN ---
Date/Time of Note Date/Time of Note DATE: 05/25/19 TIME: 11:05 Assessment/Plan VTE Prophylaxis Risk score (from Ns)>0 risk: 3 SCD applied (from Ns): Yes Pharmacological prophylaxis: LMWH Lines/Catheters IV Catheter Type (from Nrs): Peripheral IV Urinary Cath still in place: No Assessment/Plan Hospital Course -Breakthrough through seizure in patient with seizures. Continue Keppra and Ativan as needed. Continue seizure precautions. is following in neurology consultation. -Chronic respiratory failure with tracheostomy currently on cool aerosol mist. Dr. Blake is following in pulmonology consultation. -Dysphagia with G-tube -Hypertension, continue Norvasc. -History of subarachnoid hemorrhage. Result Diagram: 05/25/1971305/25/19713 Results 24hrs Laboratory Tests Test 05/25/19 07:14 White Blood Count 18.2 #H Red Blood Count 3.77 L Hemoglobin 11.2 L Hematocrit 33.2 L Mean Corpuscular Volume 88.1 Mean Corpuscular Hemoglobin 29.7 Mean Corpuscular Hemoglobin Concent 33.7 Red Cell Distribution Width 12.9 Platelet Count 209 Mean Platelet Volume 11.5 H Immature Granulocytes % 0.500 H Neutrophils % 85.9 H Lymphocytes % 8.7 L Monocytes % 4.5 Eosinophils % 0.2 Basophils % 0.2 Nucleated Red Blood Cells % 0.0 Immature Granulocytes # 0.090 H Neutrophils # 15.6 H Lymphocytes # 1.6 Monocytes # 0.8 Eosinophils # 0.0 Basophils # 0.0 Nucleated Red Blood Cells # 0.0 Sodium Level 146 H Potassium Level 3.8 Chloride Level 107 Carbon Dioxide Level 29 Anion Gap 10 Blood Urea Nitrogen 20 Creatinine 0.49 Est Glomerular Filtrat Rate mL/min > 60 Glucose Level 105 Calcium Level 9.1 Subjective 24 Hr Interval Summary Free Text/Dictation Patient sedated, on vent Exam/Review of Systems Exam Vitals Vital Signs Date Temp Pulse Resp B/P (MAP) Pulse Ox O2 O2 Flow FiO2 Time Delivery Rate 05/25/19 5.0 28 08:47 05/25/19 74 28 97 Aerosol 08:46 T Tube 05/25/19 98.4 08:16 05/25/19 104/66 07:21 (79) Intake and Output 05/24/19 05/24/19 05/25/19 1515:00 23:00 07:00 IntakeIntake Total 1170 ml BalanceBalance 1170 ml Constitutional: well developed Head: normocephalic, atraumatic Neck: supple Respiratory: diminished breath sounds Cardiovascular: regular rate and rhythm Gastrointestinal: soft, non-tender Extremities: normal pulses Results Results 24hrs Laboratory Tests Test 05/25/19 07:14 White Blood Count 18.2 #H Red Blood Count 3.77 L Hemoglobin 11.2 L Hematocrit 33.2 L Mean Corpuscular Volume 88.1 Mean Corpuscular Hemoglobin 29.7 Mean Corpuscular Hemoglobin Concent 33.7 Red Cell Distribution Width 12.9 Platelet Count 209 Mean Platelet Volume 11.5 H Immature Granulocytes % 0.500 H Neutrophils % 85.9 H Lymphocytes % 8.7 L Monocytes % 4.5 Eosinophils % 0.2 Basophils % 0.2 Nucleated Red Blood Cells % 0.0 Immature Granulocytes # 0.090 H Neutrophils # 15.6 H Lymphocytes # 1.6 Monocytes # 0.8 Eosinophils # 0.0 Basophils # 0.0 Nucleated Red Blood Cells # 0.0 Sodium Level 146 H Potassium Level 3.8 Chloride Level 107 Carbon Dioxide Level 29 Anion Gap 10 Blood Urea Nitrogen 20 Creatinine 0.49 Est Glomerular Filtrat Rate mL/min > 60 Glucose Level 105 Calcium Level 9.1 Medications Medication Current Medications Lorazepam (Ativan) 1 mg Q1H PRN IV SEIZURE Last administered on 05/22/19at 20:53; Admin Dose 1 MG; Start 05/18/19 at 22:00 Acetaminophen (Tylenol Tab) 650 mg Q4H PRN PO MILD PAIN(1-3)OR ELEVATED TEMP [place] [facility] administered on 05/25/19 04:03; Admin Dose 650 MG; Start 05/19/19 at 10:30 Amlodipine Besylate (Norvasc) 10 mg DAILY PO Last administered on 05/25/19 08:17; Admin Dose 10 MG; Start 05/19/19 at 10:30 Docusate Sodium (Colace) 100 mg QHS PO Last administered on 05/24/19 20:56; Admin Dose 100 MG; Start 05/19/19 at 21:00 Albuterol (Proventil 0.083% (Neb)) 2.5 mg Q6H RESP THERAPY HHN Last adminis tered on 7/13/19at 08:45; Admin Dose 2.5 MG; Start 05/20/19 at 02:00 Levetiracetam 100 ml @ 400 mls/hr Q12 IVPB Last administered on 05/25/19at 08:17; Admin Dose 400 MLS/HR; Start 05/22/19 at 01:00 IRIS PASCUAL May 25, 2019 11:06
[2019-05-25 11:07] VITALS: BP 101/62; PULSE 75; RESP 18
[2019-05-25 15:15] VITALS: BP 111/60; PULSE 74; RESP 18
[2019-05-25] MEDS ORDERED: POTASSIUM CHLORIDE (SR) 20 MEQ TAB PO STA (16:42)
--- NOTE | 2019-05-25 17:39 | PN ---
DATE: 05/25/2019 SUBJECTIVE: Chart reviewed. The patient remains on 28% FIO2 via T-tube, saturating 100% and does no t appear in acute distress. PHYSICAL EXAMINATION: VITAL SIGNS: Blood pressure 101/62, pulse 75, respiration 18, temperature 97.8. HEENT: Pupils are equal and reactive to light. NECK: Supple, no JVD noted. Tracheostomy in place. LUNGS: Fair breath sounds bilaterally. Few scattered rhonchi. CARDIOVASCULAR: S1, S2 normal. ABDOMEN: Soft, nontender. No organomegaly or masses noted. G-tube in place. EXTREMITIES: No clubbing, cyanosis, or edema noted. NEUROLOGICAL: Encephalopathic. LABORATORY DATA: WBC 18.2, hemoglobin 11.2, hematocrit 33.2, platelets 209. Sodium 146, potassium 3 .8, chloride 107, CO2 29, BUN 20, creatinine 0.49, glucose 105. IMPRESSION: 1. Chronic respiratory failure, tracheostomy dependent. 2. Seizure disorder. 3. Dysphagia. 4. History of subarachnoid hemorrhage. RECOMMENDATIONS: 1. Neurologic followup noted. 2. Continue Keppra. 3. Tracheostomy care and oxygen. 4. Nutritional support. Dictated By: PJ YATES MD, MA/MARYELLEN Conf#: [id number] DID#: [id number]
[2019-05-25 20:00] VITALS: BP 118/77; PULSE 81; RESP 19
[2019-05-25] MEDS: DOCUSATE SODIUM 100 MG CAP PO SCH (21:18)
[2019-05-26] MEDS: ALBUTEROL 0.083% (NEB) 2.5 MG/3 ML AMP HHN SCH ×4 (02:06→19:35)
[2019-05-26 04:00] VITALS: BP 107/69; PULSE 69; RESP 18
[2019-05-26 07:23] VITALS: BP 111/78; PULSE 90; RESP 18
[2019-05-26] MEDS: LEVETIRACETAM 500 MG (PMX) 100 ML IVPB SCH ×2 (08:33→20:42)
[2019-05-26] MEDS: AMLODIPINE 10 MG TAB PO SCH (08:33)
--- NOTE | 2019-05-26 10:46 | PN ---
Date/Time of Note Date/Time of Note DATE: 05/26/19 TIME: 10:45 Assessment/Plan VTE Prophylaxis Risk score (from Ns)>0 risk: 6 SCD applied (from Ns): Yes Pharmacological prophylaxis: LMWH Lines/Catheters IV Catheter Type (from Nrsg): Peripheral IV Urinary Cath still in place: No Assessment/Plan Hospital Course -Breakthrough through seizure in patient with seizures. Continue Keppra and Ativan as needed. Continue seizure precautions. is following in neurology consultation. -Chronic respiratory failure with tracheostomy currently on cool aerosol mist. Dr. Blake is following in pulmonology consultation. -Dysphagia with G-tube -Hypertension, continue Norvasc. -History of subarachnoid hemorrhage. Result Diagram: 05/25/1971305/25/19713 Subjective 24 Hr Interval Summary Free Text/Dictation Patient sedated and on vent via trach Exam/Review of Systems Exam Vitals Vital Signs Date Temp Pulse Resp B/P (MAP) Pulse Ox O2 O2 Flow FiO2 Time Delivery Rate 05/26/19 63 22 98 Aerosol 5.0 28 08:23 T Tube 05/26/19 98.3 111/78 07:23 (89) Intake and Output 05/25/19 05/25/19 05/26/19 1515:00 23:00 07:00 IntakeIntake Total 100 ml 1270 ml BalanceBalance 100 ml 1270 ml Constitutional: well developed Head: normocephalic, atraumatic Neck: supple Respiratory: diminished breath sounds Cardiovascular: regular rate and rhythm Gastrointestinal: soft, non-tender Extremities: normal pulses Medications Medication Current Medications Lorazepam (Ativan) 1 mg Q1H PRN IV SEIZURE Last administered on 05/22/19at 20:53; Admin Dose 1 MG; Start 05/18/19 at 22:00 Acetaminophen (Tylenol Tab) 650 mg Q4H PRN PO MILD PAIN(1-3)OR ELEVATED TEMP Last administered on 05/25/19at 04:03; Admin Dose 650 MG; Start 05/19/19 at 10:30 Amlodipine Besylate (Norvasc) 10 mg DAILY PO Last administered on 05/26/19at 08:33; Admin Dose 10 MG; Start 05/19/19 at 10:30 Docusate Sodium (Colace) 100 mg QHS PO Last administered on 05/25/19at 21:18; Admin Dose 100 MG; Start 05/19/19 at 21:00 Albuterol (Proventil 0.083% (Neb)) 2.5 mg Q6H RESP THERAPY HHN Last administered on 05/26/19 08:23; Admin Dose 2.5 MG; Start 05/20/19 at 02:00 Levetiracetam 100 ml @ 400 mls/hr Q12 IVPB Last administered on 05/26/19 08:33; Admin Dose 400 MLS/HR; Start 05/22/19 at 01:00 IRIS PASCUAL May 26, 2019 10:46
[2019-05-26 11:22] VITALS: BP 111/73; PULSE 86; RESP 18
[2019-05-26 11:37] VITALS: BP 107/70; PULSE 60; RESP 18
[2019-05-26 15:27] VITALS: BP 97/77; PULSE 85; RESP 19
--- NOTE | 2019-05-26 16:33 | PN ---
DATE: 05/26/2019 SUBJECTIVE: Chart reviewed. The patient remains on ventilator on 28% FIO2, saturating 98% and does not appear in acute distress. PHYSICAL EXAMINATION: VITAL SIGNS: Blood pressure 111/73, pulse 86, respiration 18, temperature 98.3. HEENT: Pupils are equal and react to light. NECK: Supple, no JVD noted. Tracheostomy in place. LUNGS: Few scattered rhonchi. Decreased breath sounds at the bases. CARDIOVASCULAR: S1, S2 normal. ABDOMEN: Soft, nontender. No megaly or masses noted. G-tube in place. EXTREMITIES: No clubbing, cyanosis, or edema noted. NEUROLOGICAL: Encephalopathic. LABORATORY DATA: No new labs. IMPRESSION: 1. Ventilator-dependent respiratory failure. 2. Seizure disorder. 3. Dysphagia. 4. History of subarachnoid hemorrhage. RECOMMENDATIONS: 1. Continue tracheostomy care. 2. Neuro followup. 3. Nutritional support. Dictated By: PJ YATES MD, MA/MARYELLEN Conf#: [id number] DID#: [id number] CC: BATSHEVA ESPINOZA MD;*EndCC*
[2019-05-26 20:00] VITALS: BP 112/75; PULSE 87; RESP 20
[2019-05-26] MEDS: DOCUSATE SODIUM 100 MG CAP PO SCH (20:42)
[2019-05-27] VITALS: BP 134/91; PULSE 77; RESP 19
[2019-05-27] MEDS: ALBUTEROL 0.083% (NEB) 2.5 MG/3 ML AMP HHN SCH ×4 (01:37→21:01)
[2019-05-27 04:00] VITALS: BP 101/95; PULSE 64; RESP 19
[2019-05-27 08:11] VITALS: BP 119/86; PULSE 70; RESP 18
[2019-05-27] MEDS: AMLODIPINE 10 MG TAB PO SCH (08:26)
[2019-05-27] MEDS: LEVETIRACETAM 500 MG (PMX) 100 ML IVPB SCH ×2 (08:26→22:04)
--- NOTE | 2019-05-27 11:13 | CONS ---
Assessment/Plan Assessment/Plan Assessment/Plan (Recall) 53 F c/ reported Hx of aneurysm rupture s/p clipping..., who presents following a suspected seizure..her reported first of life. CXR suggests congestive failure vs. pna; acute systemic illness would certainly lower her seizure threshold.. Head CT is notable for diffuse injury...without obvious acute pathology. EEG is notable for a R hemisphere breach and slowing. P: Continue Keppra for seizure ppx, given extensive encephalomalacia noted on head CT Ativan iv prn prolonged seizure (> 5min) Other management per primary Will follow clinically Consultation Date/Type/Reason Admit Date/Time May 18, 2019 at 04:25 Type of Consult Neurology Reason for Consultation seizure Requesting Provider: KHALIDA BURCIAGA Date/Time of Note DATE: 05/27/19 TIME: 11:13 24 HR Interval Summary Free Text/Dictation Continues acute care Exam/Review of Systems Exam Vitals Vital Signs Date Temp Pulse Resp B/P (MAP) Pulse Ox O2 O2 Flow FiO2 Time Delivery Rate 05/27/19 100 5.0 28 08:38 05/27/19 97.4 70 18 119/86 08:11 (97) 05/27/19 Aerosol 04:22 T Tube Intake and Output 05/26/19 05/26/19 05/27/19 1515:00 23:00 07:00 IntakeIntake Total 100 ml 1170 ml BalanceBalance 100 ml 1170 ml Results Result Diagram: 05/25/19 0714 05/25/19 0714 Medications Medication Current Medications Lorazepam (Ativan) 1 mg Q1H PRN IV SEIZURE Last administered on 05/22/19at 20:53; Admin Dose 1 MG; Start 05/18/19 at 22:00 Acetaminophen (Tylenol Tab) 650 mg Q4H PRN PO MILD PAIN(1-3)OR ELEVATED TEMP Last administered on 05/25/19at 04:03; Admin Dose 650 MG; Start 05/19/19 at 10:30 Amlodipine Besylate (Norvasc) 10 mg DAILY PO Last administered on 05/27/19at 08:26; Admin Dose 10 MG; Start 05/19/19 at 10:30 Docusate Sodium (Colace) 100 mg QHS PO Last administered on 05/26/19at 20:42; Admin Dose 100 MG; Start 05/19/19 at 21:00 Albuterol (Proventil 0.083% (Neb)) 2.5 mg Q6H RESP THERAPY HHN Last administered on 05/27/19at 01:37; Admin Dose 2.5 MG; Start 05/20/19 at 02:00 Levetiracetam 100 ml @ 400 mls/hr Q12 IVPB Last administered on 05/27/19 08:26; Admin Dose 400 MLS/HR; Start 05/22/19 at 01:00 LAINA VIDAL May 27, 2019 11:13
[2019-05-27 11:24] VITALS: BP 102/76; PULSE 70; RESP 16
--- NOTE | 2019-05-27 13:52 | CONS ---
Consult Date/Type/Reason Admit Date/Time May 18, 2019 at 04:25 Initial Consult Date Type of Consult Pulmonary Requesting Provider: KHALIDA BURCIAGA Date/Time of Note DATE: 05/27/19 TIME: 13:52 Subjective Patient comfortable no respiratory distress Objective Vital Signs Date Temp Pulse Resp B/P (MAP) Pulse Ox O2 O2 Flow FiO2 Time Delivery Rate 05/27/19 100 5.0 28 11:40 05/27/19 60 17 Aerosol 11:40 T Tube 05/27/19 98.2 102/76 11:24 (85) Intake and Output 05/26/19 05/26/19 05/27/19 1515:00 23:00 07:00 IntakeIntake Total 100 ml 1170 ml BalanceBalance 100 ml 1170 ml Exam PHYSICAL EXAMINATION: VITAL SIGNS: HEENT: Pupils are equal and react to light. NECK: Supple, no JVD noted. Tracheostomy in place. LUNGS: Few scattered rhonchi. Decreased breath sounds at the bases. CARDIOVASCULAR: S1, S2 normal. ABDOMEN: Soft, nontender. No megaly or masses noted. G-tube in place. EXTREMITIES: No clubbing, cyanosis, or edema noted. NEUROLOGICAL: Encephalopathic. Vent Setting Fraction of Inspired Oxygen pe: 28 Results/Medications Result Diagram: 05/25/19 0714 05/25/19 0714 Medications Current Medications Lorazepam (Ativan) 1 mg Q1H PRN IV SEIZURE Last administered on 05/22/19 20:53; Admin Dose 1 MG; Start 05/18/19 at 22:00 Acetaminophen (Tylenol Tab) 650 mg Q4H PRN PO MILD PAIN(1-3)OR ELEVATED TEMP Last administered on 05/25/19 04:03; Admin Dose 650 MG; Start 05/19/19 at 10:30 Amlodipine Besylate (Norvasc) 10 mg DAILY PO Last administered on 05/27/19 08:26; Admin Dose 10 MG; Start 05/19/19 at 10:30 Docusate Sodium (Colace) 100 mg QHS PO Last administered on 05/26/19 20:42; Admin Dose 100 MG; Start 05/19/19 at 21:00 Albuterol (Proventil 0.083% (Neb)) 2.5 mg Q6H RESP THERAPY HHN Last administered on 7/15/19at 11:40; Admin Dose 2.5 MG; Start 05/20/19 at 02:00 Levetiracetam 100 ml @ 400 mls/hr Q12 IVPB Last administered on 05/27/19at 08:26; Admin Dose 400 MLS/HR; Start 05/22/19 at 01:00 Assessment/Plan Hospital Course (Demo Recall) IMPRESSION: 1. Ventilator-dependent respiratory failure. 2. Seizure disorder. 3. Dysphagia. 4. History of subarachnoid hemorrhage. RECOMMENDATIONS: 1. Continue tracheostomy care. 2. Neuro followup. 3. Nutritional support. gilbert ? JOHN TRAN MD, [facility] May 27, 2019 13:52
[2019-05-27] MEDS ORDERED: POLYETHYLENE GLYCOL 17 GM PACKET PO ONE (14:00)
[2019-05-27 15:13] VITALS: BP 98/64; PULSE 75; RESP 17
--- NOTE | 2019-05-27 17:22 | PN ---
Date/Time of Note Date/Time of Note DATE: 05/27/19 TIME: 17:20 Assessment/Plan VTE Prophylaxis Risk score (from Ns)>0 risk: 6 SCD applied (from Ns): Yes Pharmacological prophylaxis: NA/contraindicated Pharm contraindication: hemorrhagic infarct Lines/Catheters IV [facility] Type (from [facility]): Peripheral IV Urinary Cath still in place: No Assessment/Plan Hospital Course Patient with increased leukocytosis over the weekend, chest x-ray with mild bilateral opacities, will obtain a sputum culture start Rocephin for possible pneumonia, continue current care. Assessment/Plan -Breakthrough through seizure in patient with seizures. Continue Keppra and Ativan as needed. Continue seizure precautions. is following in neurology consultation. -Chronic respiratory failure with tracheostomy currently on cool aerosol mist. Dr. Blake is following in pulmonology consultation. -Dysphagia with G-tube -Hypertension, continue Norvasc. -History of subarachnoid hemorrhage. Further recommendations based on clinical course. Plan of care discussed with Dr. Metcalf. Result Diagram: 05/25/1971305/25/19713 Exam/Review of Systems Exam Vitals Vital Signs Date Temp Pulse Resp B/P (MAP) Pulse Ox O2 O2 Flow FiO2 Time Delivery Rate 05/27/19 98 5.0 28 16:42 05/27/19 98.7 75 17 98/64 (75) 15:13 05/27/19 Aerosol 14:57 T Tube Intake and Output 05/26/19 05/26/19 05/27/19 1515:00 23:00 07:00 IntakeIntake Total 100 ml 1170 ml BalanceBalance 100 ml 1170 ml Exam Constitutional: alert, oriented Head: normocephalic Neck: other (Tracheostomy) Respiratory: clear to auscultation Cardiovascular: regular rate and rhythm Gastrointestinal: soft, non-tender, other (G-tube) Musculoskeletal: nl extremities to inspection Extremities: normal pulses Neurological: nl mental status Medications Medication Current Medications Lorazepam (Ativan) 1 mg Q1H PRN IV SEIZURE Last administered on 05/22/19at 20:53; Admin Dose 1 MG; Start 05/18/19 at 22:00 Acetaminophen (Tylenol Tab) 650 mg Q4H PRN PO MILD PAIN(1-3)OR ELEVATED TEMP Last administered on 05/25/19at 04:03; Admin Dose 650 MG; Start 05/19/19 at 10:30 Amlodipine Besylate (Norvasc) 10 mg DAILY PO Last administered on 05/27/19 08:26; Admin Dose 10 MG; Start 05/19/19 at 10:30 Docusate Sodium (Colace) 100 mg QHS PO Last administered on 05/26/19 20:42; Admin Dose 100 MG; Start 05/19/19 at 21:00 Albuterol (Proventil 0.083% (Neb)) 2.5 mg Q6H RESP THERAPY HHN Last administered on 05/27/19 14:56; Admin Dose 2.5 MG; Start 05/20/19 at 02:00 Levetiracetam 100 ml @ 400 mls/hr Q12 IVPB Last administered on 05/27/19 08:26; Admin Dose 400 MLS/HR; Start 05/22/19 at 01:00 COBY INFANTE May 27, 2019 17:22
[2019-05-27] MEDS: CEFTRIAXONE 1 GM/50 ML (PMX) 50 ML IVPB SCH (17:39)
[2019-05-27 20:26] VITALS: BP 113/79; PULSE 67; RESP 16
[2019-05-27] MEDS: DOCUSATE SODIUM 100 MG CAP PO SCH (22:04)
[2019-05-28] VITALS (7 sets, daily range): BP systolic 102–130; BP diastolic 67–86; PULSE 64–94; RESP 16–20
[2019-05-28] MEDS: ALBUTEROL 0.083% (NEB) 2.5 MG/3 ML AMP HHN SCH ×4 (01:14→19:43)
[2019-05-28] MEDS ORDERED: POTASSIUM CHLORIDE 20 MEQ POWDER FOR ORAL SOLN GTB ONE (09:30)
[2019-05-28] MEDS: LEVETIRACETAM 500 MG (PMX) 100 ML IVPB SCH ×2 (10:06→21:00)
[2019-05-28] MEDS: AMLODIPINE 10 MG TAB PO SCH (10:07)
--- NOTE | 2019-05-28 11:28 | CONS ---
Consult Date/Type/Reason Admit Date/Time May 18, 2019 at 04:25 Initial Consult Date Type of Consult Pulmonary Requesting Provider: KHALIDA BURCIAGA Date/Time of Note DATE: 05/28/19 TIME: 11:27 Subjective No events. Objective Vital Signs Date Temp Pulse Resp B/P (MAP) Pulse Ox O2 O2 Flow FiO2 Time Delivery Rate 05/28/19 98.7 73 17 112/84 100 11:04 (93) 05/28/19 Aerosol 5.0 28 07:40 Intake and Output 05/27/19 05/27/19 05/28/19 1515:00 23:00 07:00 IntakeIntake Total 100 ml 150 ml BalanceBalance 100 ml 150 ml Exam PHYSICAL EXAMINATION: VITAL SIGNS: HEENT: Pupils are equal and react to light. NECK: Supple, no JVD noted. Tracheostomy in place. LUNGS: Few scattered rhonchi. Decreased breath sounds at the bases. CARDIOVASCULAR: S1, S2 normal. ABDOMEN: Soft, nontender. No megaly or masses noted. G-tube in place. EXTREMITIES: No clubbing, cyanosis, or edema noted. NEUROLOGICAL: Encephalopathic. Vent Setting Fraction of Inspired Oxygen pe: 28 Results/Medications Result Diagram: 05/28/19 0605 05/28/19 0605 Results 24 hrs Laboratory Tests Test 05/28/19 06:05 White Blood Count 6.4 # Red Blood Count 4.01 L Hemoglobin 11.7 L Hematocrit 36.2 L Mean Corpuscular Volume 90.3 Mean Corpuscular Hemoglobin 29.2 Mean Corpuscular Hemoglobin Concent 32.3 Red Cell Distribution Width 12.6 Platelet Count 239 Mean Platelet Volume 11.4 H Immature Granulocytes % 0.300 Neutrophils % 57.2 Lymphocytes % 28.0 Monocytes % 7.2 Eosinophils % 7.0 Basophils % 0.3 Nucleated Red Blood Cells % 0.0 Immature Granulocytes # 0.020 Neutrophils # 3.7 Lymphocytes # 1.8 Monocytes # 0.5 Eosinophils # 0.5 Basophils # 0.0 Nucleated Red Blood Cells # 0.0 Sodium Level 145 H Potassium Level 3.3 L Chloride Level 107 Carbon Dioxide Level 29 Anion Gap 9 Blood Urea Nitrogen 14 Creatinine 0.42 L Est Glomerular Filtrat Rate mL/min > 60 Glucose Level 115 Calcium Level 9.2 Medications Current Medications Lorazepam (Ativan) 1 mg Q1H PRN IV SEIZURE Last administered on 05/22/19 20:53; Admin Dose 1 MG; Start 05/18/19 at 22:00 Acetaminophen (Tylenol Tab) 650 mg Q4H PRN PO MILD PAIN(1-3)OR ELEVATED TEMP Last administered on 05/25/19 04:03; Admin Dose 650 MG; Start 05/19/19 at 10:30 Amlodipine Besylate (Norvasc) 10 mg DAILY PO Last administered on 05/28/19 10:07; Admin Dose 10 MG; Start 05/19/19 at 10:30 Docusate Sodium (Colace) 100 mg QHS PO Last administered on 05/27/19 22:04; Admin Dose 100 MG; Start 05/19/19 at 21:00 Albuterol (Proventil 0.083% (Neb)) 2.5 mg Q6H RESP THERAPY HHN Last admin istered on 05/28/19 07:39; Admin Dose 2.5 MG; Start 05/20/19 at 02:00 Levetiracetam 100 ml @ 400 mls/hr Q12 IVPB Last administered on 05/28/19 10:06; Admin Dose 400 MLS/HR; Start 05/22/19 at 01:00 Ceftriaxone Sodium 50 ml @ 100 mls/hr Q24H IVPB Last administered on 05/27/19 17:39; Admin Dose 100 MLS/HR; Start 05/27/19 at 17:30 Assessment/Plan Hospital Course (Demo Recall) IMPRESSION: 1. Ventilator-dependent respiratory failure. 2. Seizure disorder. 3. Dysphagia. 4. History of subarachnoid hemorrhage. RECOMMENDATIONS: 1. Continue tracheostomy care. 2. Neuro followup. 3. Nutritional support. vladimir ? nicolasa planning ok from pulm standpoint. JOHN TRAN MD, [facility] May 28, 2019 11:28
[2019-05-28] MEDS: CEFTRIAXONE 1 GM/50 ML (PMX) 50 ML IVPB SCH (17:18)
--- NOTE | 2019-05-28 20:32 | PN ---
Date/Time of Note Date/Time of Note DATE: 05/28/19 TIME: 20:29 Assessment/Plan VTE Prophylaxis Risk score (from Ns)>0 risk: 3 SCD applied (from Ns): Yes Pharmacological prophylaxis: NA/contraindicated Pharm contraindication: hemorrhagic infarct Lines/Catheters IV C[facility]ter Type (from [facility]): Peripheral IV Urinary Cath still in place: No Assessment/Plan Hospital Course Patient is awake alert continues on cool aerosol mist via tracheostomy with moderate amount of secretions, potassium replacement given, continue current care. Assessment/Plan -Possible pneumonia per chest x-ray with leukocytosis, continue Rocephin. -Breakthrough through seizure in patient with seizures. Continue Keppra and Ativan as needed. Continue seizure precautions. is following in neurology consultation. -Chronic respiratory failure with tracheostomy currently on cool aerosol mist. Dr. Blake is following in pulmonology consultation. -Dysphagia with G-tube -Hypertension, continue Norvasc. -History of subarachnoid hemorrhage. Further recommendations based on clinical course. Plan of care discussed with Dr. Metcalf. Result Diagram: 05/28/19 0605 05/28/19 0605 Results 24hrs Laboratory Tests Test 05/28/19 06:05 White Blood Count 6.4 # Red Blood Count 4.01 L Hemoglobin 11.7 L Hematocrit 36.2 L Mean Corpuscular Volume 90.3 Mean Corpuscular Hemoglobin 29.2 Mean Corpuscular Hemoglobin Concent 32.3 Red Cell Distribution Width 12.6 Platelet Count 239 Mean Platelet Volume 11.4 H Immature Granulocytes % 0.300 Neutrophils % 57.2 Lymphocytes % 28.0 Monocytes % 7.2 Eosinophils % 7.0 Basophils % 0.3 Nucleated Red Blood Cells % 0.0 Immature Granulocytes # 0.020 Neutrophils # 3.7 Lymphocytes # 1.8 Monocytes # 0.5 Eosinophils # 0.5 Basophils # 0.0 Nucleated Red Blood Cells # 0.0 Sodium Level 145 H Potassium Level 3.3 L Chloride Level 107 Carbon Dioxide Level 29 Anion Gap 9 Blood Urea Nitrogen 14 Creatinine 0.42 L Est Glomerular Filtrat Rate mL/min > 60 Glucose Level 115 Calcium Level 9.2 Exam/Review of Systems Exam Vitals Vital Signs Date Temp Pulse Resp B/P (MAP) Pulse Ox O2 O2 Flow FiO2 Time Delivery Rate 05/28/19 5.0 28 19:50 05/28/19 70 20 99 Aerosol 19:43 T Tube 05/28/19 98.5 111/71 19:08 (84) Intake and Output 05/27/19 05/27/19 05/28/19 1515:00 23:00 07:00 IntakeIntake Total 100 ml 150 ml BalanceBalance 100 ml 150 ml Exam Constitutional: alert, oriented Head: normocephalic Neck: other (Tracheostomy) Respiratory: clear to auscultation Cardiovascular: regular rate and rhythm Gastrointestinal: soft, non-tender, other (G-tube) Musculoskeletal: nl extremities to inspection Extremities: normal pulses Neurological: nl mental status Results Results 24hrs Laboratory Tests Test 05/28/19 06:05 White Blood Count 6.4 # Red Blood Count 4.01 L Hemoglobin 11.7 L Hematocrit 36.2 L Mean Corpuscular Volume 90.3 Mean Corpuscular Hemoglobin 29.2 Mean Corpuscular Hemoglobin Concent 32.3 Red Cell Distribution Width 12.6 Platelet Count 239 Mean Platelet Volume 11.4 H Immature Granulocytes % 0.300 Neutrophils % 57.2 Lymphocytes % 28.0 Monocytes % 7.2 Eosinophils % 7.0 Basophils % 0.3 Nucleated Red Blood Cells % 0.0 Immature Granulocytes # 0.020 Neutrophils # 3.7 Lymphocytes # 1.8 Monocytes # 0.5 Eosinophils # 0.5 Basophils # 0.0 Nucleated Red Blood Cells # 0.0 Sodium Level 145 H Potassium Level 3.3 L Chloride Level 107 Carbon Dioxide Level 29 Anion Gap 9 Blood Urea Nitrogen 14 Creatinine 0.42 L Est Glomerular Filtrat Rate mL/min > 60 Glucose Level 115 Calcium Level 9.2 Medications Medication Current Medications Lorazepam (Ativan) 1 mg Q1H PRN IV SEIZURE Last administered on 05/22/19at 20:53; Admin Dose 1 MG; Start 05/18/19 at 22:00 Acetaminophen (Tylenol Tab) 650 mg Q4H PRN PO MILD PAIN(1-3)OR ELEVATED TEMP Last administered on 05/25/19at 04:03; Admin Dose 650 MG; Start 05/19/19 at 10:30 Amlodipine Besylate (Norvasc) 10 mg DAILY PO Last administered on 05/28/19at 10:07; Admin Dose 10 MG; Start 05/19/19 at 10:30 Docusate Sodium (Colace) 100 mg QHS PO Last administered on 05/27/19 22:04; Admin Dose 100 MG; Start 05/19/19 at 21:00 Albuterol (Proventil 0.083% (Neb)) 2.5 mg Q6H RESP THERAPY HHN Last administered on 05/28/19at 19:43; Admin Dose 2.5 MG; Start 05/20/19 at 02:00 Levetiracetam 100 ml @ 400 mls/hr Q12 IVPB Last administered on 05/28/19 10:06; Admin Dose 400 MLS/HR; Start 05/22/19 at 01:00 Ceftriaxone Sodium 50 ml @ 100 mls/hr Q24H IVPB Last administered on 05/28/19 17:18; Admin Dose 100 MLS/HR; Start 05/27/19 at 17:30 COBY INFANTE May 28, 2019 20:32
[2019-05-28] MEDS: DOCUSATE SODIUM 100 MG CAP PO SCH (21:00)
[2019-05-29] MEDS: ALBUTEROL 0.083% (NEB) 2.5 MG/3 ML AMP HHN SCH ×2 (01:47→08:00)
[2019-05-29 03:54] VITALS: BP 117/81; PULSE 79; RESP 22
[2019-05-29 07:12] VITALS: BP 107/79; PULSE 64; RESP 18
[2019-05-29] MEDS: LEVETIRACETAM 500 MG (PMX) 100 ML IVPB SCH ×2 (08:21→20:52)
[2019-05-29] MEDS: AMLODIPINE 10 MG TAB PO SCH (08:22)
[2019-05-29 11:15] VITALS: BP 108/73; PULSE 64; RESP 19
--- NOTE | 2019-05-29 12:16 | CONS ---
Consult Date/Type/Reason Admit Date/Time May 18, 2019 at 04:25 Initial Consult Date Type of Consult Pulmonary Requesting Provider: KHALIDA BURCIAGA Date/Time of Note DATE: 05/29/19 TIME: 12:16 Subjective No new events patient comfortable Objective Vital Signs Date Temp Pulse Resp B/P (MAP) Pulse Ox O2 O2 Flow FiO2 Time Delivery Rate 05/29/19 98.5 64 19 108/73 100 11:15 (85) 05/29/19 Aerosol 5.0 28 05:07 T Tube Intake and Output 05/28/19 05/28/19 05/29/19 1414:59 22:59 06:59 IntakeIntake Total 100 ml 100 ml 1220 ml BalanceBalance 100 ml 100 ml 1220 ml Exam PHYSICAL EXAMINATION: VITAL SIGNS: HEENT: Pupils are equal and react to light. NECK: Supple, no JVD noted. Tracheostomy in place. LUNGS: Few scattered rhonchi. Decreased breath sounds at the bases. CARDIOVASCULAR: S1, S2 normal. ABDOMEN: Soft, nontender. No megaly or masses noted. G-tube in place. EXTREMITIES: No clubbing, cyanosis, or edema noted. NEUROLOGICAL: Encephalopathic. Vent Setting Fraction of Inspired Oxygen pe: 28 Results/Medications Result Diagram: 05/28/19 0605 05/28/19 0605 Medications Current Medications Lorazepam (Ativan) 1 mg Q1H PRN IV SEIZURE Last administered on 05/22/19at 20:53; Admin Dose 1 MG; Start 05/18/19 at 22:00 Acetaminophen (Tylenol Tab) 650 mg Q4H PRN PO MILD PAIN(1-3)OR ELEVATED TEMP Last administered on 05/25/19at 04:03; Admin Dose 650 MG; Start 05/19/19 at 10:30 Amlodipine Besylate (Norvasc) 10 mg DAILY PO Last administered on 05/29/19at 08:22; Admin Dose 10 MG; Start 05/19/19 at 10:30 Docusate Sodium (Colace) 100 mg QHS PO Last administered on 05/28/19at 21:00; Admin Dose 100 MG; Start 05/19/19 at 21:00 Albuterol (Proventil 0.083% (Neb)) 2.5 mg Q6H RESP THERAPY HHN Last administered on 05/29/19at 01:47; Admin Dose 2.5 MG; Start 05/20/19 at 02:00 Levetiracetam 100 ml @ 400 mls/hr Q12 IVPB Last administered on 05/29/19at 08:21; Admin Dose 400 MLS/HR; Start 05/22/19 at 01:00 Ceftriaxone Sodium 50 ml @ 100 mls/hr Q24H IVPB Last administered on 05/28/19at 17:18; Admin Dose 100 MLS/HR; Start 05/27/19 at 17:30 Assessment/Plan Hospital Course (Demo Recall) IMPRESSION: 1. Ventilator-dependent respiratory failure. 2. Seizure disorder. 3. Dysphagia. 4. History of subarachnoid hemorrhage. RECOMMENDATIONS: 1. Continue tracheostomy care. 2. Neuro followup. 3. Nutritional support. vladimir ? nicolasa planning ok from pulm standpoint. JOHN TRAN MD, [facility] May 29, 2019 12:16
--- NOTE | 2019-05-29 12:27 | CONS ---
Assessment/Plan Assessment/Plan Assessment/Plan (Recall) 53 F c/ reported Hx of aneurysm rupture s/p clipping..., who presents following a suspected seizure..her reported first of life. CXR suggests congestive failure vs. pna; acute systemic illness would certainly lower her seizure threshold.. Head CT is notable for diffuse injury...without obvious acute pathology. EEG is notable for a R hemisphere breach and slowing. P: Continue Keppra for seizure ppx, given extensive encephalomalacia noted on head CT Ativan iv prn prolonged seizure (> 5min) Other management per primary Will follow clinically Consultation Date/Type/Reason Admit Date/Time May 18, 2019 at 04:25 Type of Consult Neurology Reason for Consultation seizure Requesting Provider: KHALIDA BURCIAGA Date/Time of Note DATE: 05/29/19 TIME: 12:26 24 HR Interval Summary Free Text/Dictation Continues acute care Exam/Review of Systems Exam Vitals Vital Signs Date Temp Pulse Resp B/P (MAP) Pulse Ox O2 O2 Flow FiO2 Time Delivery Rate 05/29/19 98.5 64 19 108/73 100 11:15 (85) 05/29/19 Aerosol 5.0 28 05:07 T Tube Intake and Output 05/28/19 05/28/19 05/29/19 1515:00 23:00 07:00 IntakeIntake Total 100 ml 100 ml 1220 ml BalanceBalance 100 ml 100 ml 1220 ml Results Result Diagram: 05/28/1960405/28/19604 Medications Medication Current Medications Lorazepam (Ativan) 1 mg Q1H PRN IV SEIZURE Last administered on 05/22/19at 20:53; Admin Dose 1 MG; Start 05/18/19 at 22:00 Acetaminophen (Tylenol Tab) 650 mg Q4H PRN PO MILD PAIN(1-3)OR ELEVATED TEMP Last administered on 05/25/19at 04:03; Admin Dose 650 MG; Start 05/19/19 at 10:30 Amlodipine Besylate (Norvasc) 10 mg DAILY PO Last administered on 05/29/19at 08:22; Admin Dose 10 MG; Start 05/19/19 at 10:30 Docusate Sodium (Colace) 100 mg QHS PO Last administered on 05/28/19at 21:00; Admin Dose 100 MG; Start 05/19/19 at 21:00 Levetiracetam 100 ml @ 400 mls/hr Q12 IVPB Last administered on 05/29/19at 08:21; Admin Dose 400 MLS/HR; Start 05/22/19 at 01:00 Ceftriaxone Sodium 50 ml @ 100 mls/hr Q24H IVPB Last administered on 05/28/19at 17:18; Admin Dose 100 MLS/HR; Start 05/27/19 at 17:30 LAINA VIDAL May 29, 2019 12:27
--- NOTE | 2019-05-29 12:58 | PN ---
Date/Time of Note Date/Time of Note DATE: 05/29/19 TIME: 12:57 Assessment/Plan VTE Prophylaxis Risk score (from Ns)>0 risk: 3 SCD applied (from [facility] [place]): Yes Pharmacological prophylaxis: NA/contraindicated Pharm contraindication: hemorrhagic infarct Lines/Catheters IV Catheter Type (from [facility]): [place] Urinary Cath still in place: No Assessment/Plan Hospital Course Patient is awake alert continues on cool aerosol mist via tracheostomy with moderate amount of secretions, continue current care. Assessment/Plan -Possible pneumonia per chest x-ray with leukocytosis, continue Rocephin. -Breakthrough through seizure in patient with seizures. Continue Keppra and Ativan as needed. Continue seizure precautions. is following in [place] urology consultation. -Chronic respiratory failure with tracheostomy currently on cool aerosol mist. Dr. Blake is following in pulmonology consultation. -Dysphagia with G-tube -Hypertension, continue Norvasc. -History of subarachnoid hemorrhage. Further recommendations based on clinical course. Plan of care discussed with Dr. Metcalf. Result Diagram: 05/28/1960405/28/19 06 Exam/Review of Systems Exam Vitals Vital Signs Date Temp Pulse Resp B/P (MAP) Pulse Ox O2 O2 Flow FiO2 Time Delivery Rate 05/29/19 98.5 64 19 108/73 100 11:15 (85) 05/29/19 Aerosol 5.0 28 05:07 T Tube Intake and Output 05/28/19 05/28/19 05/29/19 1515:00 23:00 07:00 IntakeIntake Total 100 ml 100 ml 1220 ml BalanceBalance 100 ml 100 ml 1220 ml Exam Constitutional: alert, oriented Head: normocephalic Neck: other (Tracheostomy) Respiratory: clear to auscultation Cardiovascular: regular rate and rhythm Gastrointestinal: soft, non-tender, other (G-tube) Musculoskeletal: nl extremities to inspection Extremities: normal pulses Neurological: nl mental status Medications Medication Current Medications Lorazepam (Ativan) 1 mg Q1H PRN IV SEIZURE Last administered on 05/22/19at 20:53; Admin Dose 1 MG; Start 05/18/19 at 22:00 Acetaminophen (Tylenol Tab) 650 mg Q4H PRN PO MILD PAIN(1-3)OR ELEVATED TEMP Last administered on 7/13/19at 04:03; Admin Dose 650 MG; Start 05/19/19 at 10:30 Amlodipine Besylate (Norvasc) 10 mg DAILY PO Last administered on 05/29/19 08:22; Admin Dose 10 MG; Start 05/19/19 at 10:30 Docusate Sodium (Colace) 100 mg QHS PO Last administered on 05/28/19at 21:00; Admin Dose 100 MG; Start 05/19/19 at 21:00 Levetiracetam 100 ml @ 400 mls/hr Q12 IVPB Last administered on 05/29/19 08:21; Admin Dose 400 MLS/HR; Start 05/22/19 at 01:00 Ceftriaxone Sodium 50 ml @ 100 mls/hr Q24H IVPB Last administered on 05/28/19 17:18; Admin Dose 100 MLS/HR; Start 05/27/19 at 17:30 COBY INFANTE May 29, 2019 12:58
[2019-05-29 15:55] VITALS: BP 112/74; PULSE 86; RESP 19
[2019-05-29] MEDS: CEFTRIAXONE 1 GM/50 ML (PMX) 50 ML IVPB SCH (17:29)
[2019-05-29 20:15] VITALS: BP 109/78; PULSE 61; RESP 18
[2019-05-29] MEDS ORDERED: DOCUSATE SODIUM 10 MG/ML (10ML CUP) PO SCH (21:00)
[2019-05-30 00:03] VITALS: BP 128/90; PULSE 66; RESP 20
[2019-05-30 04:20] VITALS: BP 118/83; PULSE 66; RESP 19
[2019-05-30 07:17] VITALS: BP 115/84; PULSE 58; RESP 21
[2019-05-30] MEDS: LEVETIRACETAM 500 MG (PMX) 100 ML IVPB SCH (08:18)
[2019-05-30] MEDS: AMLODIPINE 10 MG TAB PO SCH (08:18)
--- NOTE | 2019-05-30 09:39 | CONS ---
Assessment/Plan Assessment/Plan Assessment/Plan (Recall) 53 F c/ reported Hx of aneurysm rupture s/p clipping..., who presents following a suspected seizure..her reported first of life. CXR suggests congestive failure vs. pna; acute systemic illness would certainly lower her seizure threshold.. Head CT is notable for diffuse injury...without obvious acute pathology. EEG is notable for a R hemisphere breach and slowing. P: Continue Keppra for seizure ppx, given extensive encephalomalacia noted on head CT Ativan iv prn prolonged seizure (> 5min) Other management per primary Will follow clinically Consultation Date/Type/Reason Admit Date/Time May 18, 2019 at 04:25 Type of Consult Neurology Reason for Consultation seizure Requesting Provider: KHALIDA BURCIAGA Date/Time of Note DATE: 05/30/19 TIME: 09:39 24 HR Interval Summary Free Text/Dictation Continues acute care Exam/Review of Systems Exam Vitals Vital Signs Date Temp Pulse Resp B/P (MAP) Pulse Ox O2 O2 Flow FiO2 Time Delivery Rate 05/30/19 97.6 58 21 115/84 97 07:17 (94) 05/30/19 Aerosol 5.0 28 05:42 T Tube Intake and Output 05/29/19 05/29/19 05/30/19 1515:00 23:00 07:00 IntakeIntake Total 1220 ml BalanceBalance 1220 ml Results Result Diagram: 05/30/19 0708 05/30/19 0708 Results 24hrs Laboratory Tests Test 05/29/19 13:11 05/30/19 07:08 White Blood Count 4.9 # 5.3 Red Blood Count 3.88 L 3.89 L Hemoglobin 11.3 L 11.4 L Hematocrit 34.1 L 34.0 L Mean Corpuscular Volume 87.9 87.4 Mean Corpuscular Hemoglobin 29.1 29.3 Mean Corpuscular Hemoglobin Concent 33.1 33.5 Red Cell Distribution Width 12.6 12.4 Platelet Count 233 232 Mean Platelet Volume 11.2 H 11.8 H Immature Granulocytes % 0.400 0.400 Neutrophils % 49.8 46.7 Lymphocytes % 31.3 34.5 Monocytes % 10.3 10.9 Eosinophils % 7.8 H 7.1 H Basophils % 0.4 0.4 Nucleated Red Blood Cells % 0.0 0.0 Immature Granulocytes # 0.020 0.020 Neutrophils # 2.4 2.5 Lymphocytes # 1.5 1.8 Monocytes # 0.5 0.6 Eosinophils # 0.4 0.4 Basophils # 0.0 0.0 Nucleated Red Blood Cells # 0.0 0.0 Sodium Level 145 H 147 H Potassium Level 4.0 3.4 L Chloride Level 108 107 Carbon Dioxide Level 30 32 H Anion Gap 7 8 Blood Urea Nitrogen 16 15 Creatinine 0.43 L 0.42 L Est Glomerular Filtrat Rate mL/min > 60 > 60 Glucose Level 100 80 Calcium Level 9.4 9.2 Medications Medication Current Medications Lorazepam (Ativan) 1 mg Q1H PRN IV SEIZURE Last administered on 05/22/19 2 0:53; Admin Dose 1 MG; Start 05/18/19 at 22:00 Acetaminophen (Tylenol Tab) 650 mg Q4H PRN PO MILD PAIN(1-3)OR ELEVATED TEMP Last administered on 05/25/19 04:03; Admin Dose 650 MG; Start 05/19/19 at 10:30 Amlodipine Besylate (Norvasc) 10 mg DAILY PO Last administered on 05/30/19 08:18; Admin Dose 10 MG; Start 05/19/19 at 10:30 Levetiracetam 100 ml @ 400 mls/hr Q12 IVPB Last administered on 05/30/19 08:18; Admin Dose 400 MLS/HR; Start 05/22/19 at 01:00 Ceftriaxone Sodium 50 ml @ 100 mls/hr Q24H IVPB Last administered on 05/29/19 17:29; Admin Dose 100 MLS/HR; Start 05/27/19 at 17:30 Docusate Sodium (Colace Liquid Cup) 100 mg QHS PO Last administered on 05/29/19 21:44; Admin Dose 100 MG; Start 05/29/19 at 21:00 LAINA VIDAL May 30, 2019 09:39
[2019-05-30] MEDS ORDERED: NEOMYC/POLYMYX/BACIT 0.9 GM OINT ONE (10:13)
[2019-05-30 11:00] VITALS: BP 104/76; PULSE 74; RESP 20
[2019-05-30] MEDS ORDERED: POTASSIUM CHLORIDE 20 MEQ POWDER FOR ORAL SOLN GTB ONE (11:00)
--- NOTE | 2019-05-30 11:39 | CONS ---
Consult Date/Type/Reason Admit Date/Time May 18, 2019 at 04:25 Initial Consult Date Type of Consult Pulmonary Requesting Provider: KHALIDA BURCIAGA Date/Time of Note DATE: 05/30/19 TIME: 11:38 Subjective Patient appears comfortable no respiratory distress Objective Vital Signs Date Temp Pulse Resp B/P (MAP) Pulse Ox O2 O2 Flow FiO2 Time Delivery Rate 05/30/19 60 20 98 Aerosol 5.0 28 11:25 05/30/19 98.0 104/76 11:00 (85) Intake and Output 05/29/19 05/29/19 05/30/19 1515:00 23:00 07:00 IntakeIntake Total 1220 ml BalanceBalance 1220 ml Exam PHYSICAL EXAMINATION: VITAL SIGNS: HEENT: Pupils are equal and react to light. NECK: Supple, no JVD noted. Tracheostomy in place. LUNGS: Few scattered rhonchi. Decreased breath sounds at the bases. CARDIOVASCULAR: S1, S2 normal. ABDOMEN: Soft, nontender. No megaly or masses noted. G-tube in place. EXTREMITIES: No clubbing, cyanosis, or edema noted. NEUROLOGICAL: Encephalopathic. Vent Setting Fraction of Inspired Oxygen pe: 28 Results/Medications Result Diagram: 05/30/19 0708 05/30/19 0708 Results 24 hrs Laboratory Tests Test 05/29/19 13:11 05/30/19 07:08 White Blood Count 4.9 # 5.3 Red Blood Count 3.88 L 3.89 L Hemoglobin 11.3 L 11.4 L Hematocrit 34.1 L 34.0 L Mean Corpuscular Volume 87.9 87.4 Mean Corpuscular Hemoglobin 29.1 29.3 Mean Corpuscular Hemoglobin Concent 33.1 33.5 Red Cell Distribution Width 12.6 12.4 Platelet Count 233 232 Mean Platelet Volume 11.2 H 11.8 H Immature Granulocytes % 0.400 0.400 Neutrophils % 49.8 46.7 Lymphocytes % 31.3 34.5 Monocytes % 10.3 10.9 Eosinophils % 7.8 H 7.1 H Basophils % 0.4 0.4 Nucleated Red Blood Cells % 0.0 0.0 Immature Granulocytes # 0.020 0.020 Neutrophils # 2.4 2.5 Lymphocytes # 1.5 1.8 Monocytes # 0.5 0.6 Eosinophils # 0.4 0.4 Basophils # 0.0 0.0 Nucleated Red Blood Cells # 0.0 0.0 Sodium Level 145 H 147 H Potassium Level 4.0 3.4 L Chloride Level 108 107 Carbon Dioxide Level 30 32 H Anion Gap 7 8 Blood Urea Nitrogen 16 15 Creatinine 0.43 L 0.42 L Est Glomerular Filtrat Rate mL/min > 60 > 60 Glucose Level 100 80 Calcium Level 9.4 9.2 Medications Current Medications Lorazepam (Ativan) 1 mg Q1H PRN IV SEIZURE Last administered on 05/22/19 20:53; Admin Dose 1 MG; Start 05/18/19 at 22:00 Acetaminophen (Tylenol Tab) 650 mg Q4H PRN PO MILD PAIN(1-3)OR ELEVATED TEMP Last administered on 05/25/19 04:03; Admin Dose 650 MG; Start 05/19/19 at 10:30 Amlodipine Besylate (Norvasc) 10 mg DAILY PO Last administered on 05/30/19 08:18; Admin Dose 10 MG; Start 05/19/19 at 10:30 Levetiracetam 100 ml @ 400 mls/hr Q12 IVPB Last administered on 05/30/19 08:18; Admin Dose 400 MLS/HR; Start 05/22/19 at 01:00 Ceftriaxone Sodium 50 ml @ 100 mls/hr Q24H IVPB Last administered on 05/29/19 17:29; Admin Dose 100 MLS/HR; Start 05/27/19 at 17:30 Docusate Sodium (Colace Liquid Cup) 100 mg QHS PO Last administered on 05/29/19 21:44; Admin Dose 100 MG; Start 05/29/19 at 21:00 Assessment/Plan Hospital Course (Demo Recall) IMPRESSION: 1. Ventilator-dependent respiratory failure. 2. Seizure disorder. 3. Dysphagia. 4. History of subarachnoid hemorrhage. RECOMMENDATIONS: 1. Continue tracheostomy care. 2. Neuro followup. 3. Nutritional support. vladimir Buchanan dc planning ok from pulm standpoint. JOHN TRAN MD, [facility] May 30, 2019 11:39
[2019-05-30 15:12] VITALS: BP 110/65; PULSE 89; RESP 20
--- NOTE | 2019-05-30 19:11 | DS ---
Date/Time of Note Date/Time of Note DATE: 05/30/19 TIME: 19:08 Discharge Summary Admission/Discharge Info Admit Date/Time May 18, 2019 at 04:25 Discharge Date/Time May 30, 2019 at 17:45 Patient Condition: Stable Hx of Present Illness This is a 53-year-old female with a past medical history of hypertension, traumatic subarachnoid hemorrhage, anoxic brain injury in a persistent vegetative state, chronic respiratory failure status post tracheostomy, dysphagia status post gastrostomy who is now presenting for a focal seizure. The patient reportedly had 20 to 25 minutes of left arm and left-sided facial twitching. The patient was reportedly ordered 1 mg of Ativan through the G-tube at her assisted facility for this event, but it proved ineffective. The nursing facility physician subsequently requested that the patient be transferred for further assessment in the emergency department. The patient was given Versed in route to the emergency department with resolution of her shaking. The patient now appears to be back at her baseline. Based on her medical records, the patient does not have a history of seizures. History and physical is limited secondary to clinical condition. Hospital Course -Possible aspiration pneumonia versus tracheobronchitis, infiltrates per chest x-ray with leukocytosis, resolved, s/p Rocephin. -Breakthrough through seizure in patient with seizures. Continue Keppra and Ativan as needed. Continue seizure precautions. is following in neurology consultation. -Chronic respiratory failure with tracheostomy currently on cool aerosol mist. Dr. Blake is following in pulmonology consultation. -Dysphagia with G-tube -Hypertension, continue Norvasc. -History of subarachnoid hemorrhage. Plan of care discussed with Dr. Metcalf. Home Meds Reported Medications Acetaminophen* (Acetaminophen*) 325 Mg Tablet, 650 MG PO Q4H PRN for PAIN AND OR ELEVATED TEMP, #30 TAB 05/18/19 Cranberry Ext/C/L. Sporogenes (Cranberry Tablet) 1 Each Tablet, 1 EACH PO DAILY, TAB 05/18/19 Docusate Sodium* (Docusate Sodium*) 100 Mg Capsule, 100 MG PO QHS, #30 CAP 05/18/19 Chlorhexidine Gluconate* (Chlorhexidine Gluconate*) 118 Ml Liquid, 15 ML TOP Q12H, ML 05/18/19 Amlodipine Besylate* (Amlodipine Besylate*) 10 Mg Tablet, 10 MG PO DAILY, #30 TAB 05/18/19 Albuterol Sulfate* (Proair HFA*) 8.5 Gm Hfa.aer.ad, 2 PUFF INH Q6 for WHEEZING, #1 INHALER 05/18/19 Follow-up Plan /c to [facility] with current orders Primary Care Provider Macario Patel MD Time spent on discharge: > 30 minutes Pending Labs Laboratory Tests Test 05/30/19 07:08 White Blood Count 5.3 10^3/ul (4.8-10.8) Red Blood Count 3.89 10^6/ul (4.20-5.40) Hemoglobin 11.4 g/dl (12.0-16.0) Hematocrit 34.0 % (37.0-47.0) Mean Corpuscular Volume 87.4 fl (82.0-101.0) Mean Corpuscular Hemoglobin 29.3 pg (29.0-33.0) Mean Corpuscular Hemoglobin Concent 33.5 g/dl (32.0-37.0) Red Cell Distribution Width 12.4 % (11.5-14.5) Platelet Count 232 10^3/UL (140-415) Mean Platelet Volume 11.8 fl (7.4-10.4) Immature Granulocytes % 0.400 % (0.001-0.429) Neutrophils % 46.7 % (39.0-77.0) Lymphocytes % 34.5 % (15.0-51.0) Monocytes % 10.9 % (0.0-11.0) Eosinophils % 7.1 % (0.0-7.0) Basophils % 0.4 % (0.0-2.0) Nucleated Red Blood Cells % 0.0 /100WBC (0.0-0.0) Immature Granulocytes # 0.020 10^3/ul (0.0-0.031) Neutrophils # 2.5 10^3/ul (1.6-7.5) Lymphocytes # 1.8 10^3/ul (0.8-2.9) Monocytes # 0.6 10^3/ul (0.3-0.9) Eosinophils # 0.4 10^3/ul (0.0-0.5) Basophils # 0.0 10^3/ul (0.0-0.1) Nucleated Red Blood Cells # 0.0 10^3/ul (0.0-0.0) Sodium Level 147 mmol/L (135-144) Potassium Level 3.4 mmol/L (3.5-5.1) Chloride Level 107 mmol/L (97-110) Carbon Dioxide Level 32 mmol/L (21-31) Anion Gap 8 (5-13) Blood Urea Nitrogen 15 mg/dl (7-20) Creatinine 0.42 mg/dl (0.44-1.00) Est Glomerular Filtrat Rate mL/min > 60 mL/min (>60) Glucose Level 80 mg/dl (70-220) Calcium Level 9.2 mg/dl (8.4-10.2) COBY INFANTE May 30, 2019 19:11
== END 2019-05-30 17:45 | DRG 100 ==
LOC: E/R 01:18 → TEL 04:25 → CANRESERV 06:57 → TEL 18:43
PROVIDERS: ADMIT Internal Medicine; ATTEND Internal Medicine
DX: G40.101 Localization-related (focal) (partial) symptomatic epilepsy and epileptic syndromes with simple partial seizures, not intractable, with status epilepticus (principal); G93.41 Metabolic encephalopathy; J69.0 Pneumonitis due to inhalation of food and vomit; G93.1 Anoxic brain damage, not elsewhere classified; J96.10 Chronic respiratory failure, unspecified whether with hypoxia or hypercapnia; Z99.11 Dependence on respirator [ventilator] status; R40.3 Persistent vegetative state; R13.10 Dysphagia, unspecified; E87.6 Hypokalemia; G93.89 Other specified disorders of brain; I10 Essential (primary) hypertension; J40 Bronchitis, not specified as acute or chronic; Z93.0 Tracheostomy status; Z93.1 Gastrostomy status; Z86.79 Personal history of other diseases of the circulatory system; Z98.2 Presence of cerebrospinal fluid drainage device
CPT/HCPCS: 36415; 70450; 71045; 80048; 80053; 82962; 83735; 84100; 85025; 85610; 85730; 87070; 87081; 92526; 92610; 93005; 94640; 94664; 95819; 96374; J0696; J1953; J2060; J3480; J7030